=== PATIENT | male | born 1935 | race Caucasian/White ===

== ENCOUNTER 2021-01-30 14:03 | Inpatient (IN) ==
[2021-01-30] MEDS ORDERED: SODIUM CHLORIDE 0.9% 1000ML 1,000 ML IV SCH ×2 (15:00→22:07)
[2021-01-30 15:08] LABS: Basophils # (auto) 0.03 K/uL (0-0.2); Basophils % (auto) 0.2 %; Eosinophils # (auto) 0.04 K/uL (0-0.5); Eosinophils % (auto) 0.3 %; Hemoglobin 8.8 g/dL (14.0-18.0); Immature Granulocytes # (auto) 0.08 K/uL (0.00-0.02); Immature Granulocytes % (auto) 0.7 %; Lymphocytes # (auto) 1.37 K/uL (1.2-3.4); Lymphocytes % (auto) 11.2 %; Mean Corpuscular Hemoglobin 30.3 pg (25-34); Mean Corpuscular Hgb Conc 32.6 g/dL (32-36); Mean Corpuscular Volume 93.1 fL (80-100); Mean Platelet Volume 10.5 fL (7.4-10.4); Monocytes # (auto) 0.88 K/uL (0.11-0.59); Monocytes % (auto) 7.2 %; Neutrophils # (auto) 9.84 K/uL (1.4-6.5); Neutrophils % (auto) 80.4 %; Platelet Count 185 K/uL (130-400); RDW Coefficient of Variation 14.3 % (11.5-14.5); RDW Standard Deviation 48.7 fL (36.4-46.3); White Blood Count 12.24 K/uL (4.8-10.8)
[2021-01-30 15:16] LABS: Alanine Aminotransferase 11 U/L (12-78); Albumin Level 2.6 gm/dl (3.4-5.0); Aspartate Aminotransferase 32 U/L (15-37); BUN Creatinine Ratio 20.1 (10-20); Blood Urea Nitrogen 36 mg/dl (7-18); Carbon Dioxide 25 mmol/L (21-32); Chloride 108 mmol/L (98-107); Creatinine Clr Calc Pharmacy 38.1 ml/min; Est GFR (African American) 39.7 ml/min; Est GFR (Non-African American) 34.3 ml/min; Glucose 151 mg/dl (70-99); Lipase 59 U/L (73-393); Magnesium 2.1 mg/dl (1.8-2.4); Potassium 3.9 mmol/L (3.5-5.1); Sodium 137 mmol/L (136-145)
[2021-01-30 15:17] LABS: INR 3.1 (0.9-1.1); Prothrombin Time 28.8 Seconds (9.0-12.0)
--- NOTE | 2021-01-30 15:22 | XRay Report ---
XR chest 1V portable INDICATION: MN ^syncope . TECHNIQUE: Single frontal radiograph of the chest was obtained. Comparison: None available at the time of this dictation. FINDINGS: Pacemaker is noted. The cardiomediastinal silhouette is normal. Atelectasis is noted at the left lung base. No evidence of pleural effusion or pneumothorax. IMPRESSION: No acute chest disease. ACT 112: Negative or not required by law. Electronically signed by: Brent Becerra M.D. 01/30/2021 3:21 PM
[2021-01-30 15:33] LABS: Albumin Globulin Ratio 0.8 (0.9-2); Alkaline Phosphatase 75 U/L (45-117); Bilirubin,Total 0.3 mg/dl (0.2-1); Globulin 3.3 gm/dl (2.5-4.0); NT Pro B Type Natriuretic Pept 424 pg/ml (0-1800); Total Protein 5.9 gm/dl (6.4-8.2); Troponin I < 0.015 ng/ml (0-0.045)
--- NOTE | 2021-01-30 15:41 | Emergency Department Note ---
History of Present Illness General Chief complaint: Syncope Time Seen by Provider: 01/30/21 14:33 Source: EMS and RN notes reviewed Mode of arrival: EMS Limitations: other (No memory of the events) History of Present Illness Provider complaint: Syncope Maximum Pain Intensity: 6 Treatments prior to arrival: none This is an 85-year-old male brought in by EMS from a local rehab facility due to concern for syncopal event. Per report of EMS and notes sent with, patient had an episode where he stared, and seemed to get weak when they tried to sit him up or stand him up. Patient recently admitted to the inpatient rehab facility following an admission at [facility] where he was found to have a blood clot in his brain. Patient was started on blood thinners. There was no reported seizure-like activity. Patient could not recall the events or why he was transported. Patient denied any pain, headaches, nausea, vision changes, chest pain, or trouble breathing. Patient states he does have left knee pain which she states has been ongoing and chronic, and he was to have an evaluation by orthopedic surgery. Patient then had a second episode similar to the first according to the report and 911 was contacted for transport. No loss of bowel or bladder function. They denied any trauma. Paperwork accompanying patient shows patient had been on Lovenox to bridge him to Coumadin. Patient's discharge summary showing the original CT findings in hi s original presentation were also there. Patient's original presentation when they blood clot in his brain was found was that of syncope. Pt seen during a time of high acuity and national emergency pandemic while wearing PPE. Home Medications Medication Instructions Recorded Confirmed Type acetaminophen 325 mg tablet 650 mg PO Q4H PRN 01/30/21 01/30/21 History atorvastatin 40 mg tablet 80 mg PO PM 01/30/21 01/30/21 History bisacodyl 10 mg rectal suppository 10 mg MT DAILY PRN 01/30/21 01/30/21 History carbidopa 25 mg-levodopa 100 mg 1.5 tab PO TID 01/30/21 01/30/21 History tablet cyanocobalamin (vitamin B-12) 1,000 mcg PO DAILY 01/30/21 01/30/21 History 1,000 mcg tablet docusate sodium 100 mg capsule 100 mg PO BID 01/30/21 01/30/21 History enoxaparin 100 mg/mL subcutaneous 100 mg SUBCUT Q12H 01/30/21 01/30/21 History syringe glucosamine sulfate 500 mg tablet 500 mg PO BID 01/30/21 01/30/21 History (Glucosamine) metoprolol succinate 25 mg 25 mg PO DAILY 01/30/21 01/30/21 History tablet,extended release 24 hr polyethylene glycol 3350 17 17 g PO DAILY PRN 01/30/21 01/30/21 History gram/dose oral powder sennosides 8.6 mg tablet (Senna 8.6 mg PO .DAILY@LUNCH PRN 01/30/21 01/30/21 History Laxative) warfarin 5 mg tablet 5 mg PO UD 01/30/21 01/30/21 History Allergies Allergy/AdvReac Type Severity Reaction Status Date / Time cortisone Allergy Unknown Unverified 01/30/21 16:55 Past Med/Surg History Medical History CKD (chronic kidney disease), stage III HTN (hypertension) Pacemaker Parkinsonian features Sick sinus syndrome TIA (transient ischemic attack) Surgical History History of carpal tunnel surgery History of lumbar surgery Family History Daughter Heart disease FH - Bradycardia Social History Smoking Status: Never smoker Smoking End Date: Quit in s; Second Hand Exposure: No; Do You Dip or Chew Tobacco: No; Tobacco Cessation Education Requested by Patient: No Hx Alcohol Use: Yes (1-2 glasses wine a day) Alcohol type: wine Hx Substance Use: No Preferred Language: Belarusian Communication Ability: Effective 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 glasses and BL hearing aids at bedside Review of Systems A total of 10 systems reviewed and were otherwise negative All systems reviewed & are unremarkable except as noted in HPI & below Physical Exam Vital Signs Vital Signs - 24 hr 01/30/21 14:35 Temperature 36.7 C Temperature Source Oral Pulse Rate 76 Pulse Rhythm Regular Pulse Strength Normal Respiratory Rate 14 Respiratory Effort / Characteristics Non-Labored Spontaneous Respiratory Depth Normal Respiratory Pattern Regular Blood Pressure 134/74 Blood Pressure Mean 94 Blood Pressure Position Sitting Pulse Oximetry 98 Oxygen Delivery Method Room Air Sepsis Recent Fever Within 48 Hours No Sepsis New/Unexplained Change in Mental Status No Sepsis Action Taken by Nursing No Action Required GENERAL: alert, well appearing, well nourished, no distress, non-toxic EYE EXAM: normal conjunctiva, PERRL and EOM's grossly intact OROPHARYNX: no exudate, no erythema, lips, buccal mucosa, and tongue normal and mucous membranes are moist NECK: supple, no nuchal rigidity, no adenopathy, non-tender LUNGS: Clear to auscultation. Normal chest wall mechanics, no w/r/r HEART: no murmurs, S1 normal and S2 normal ABDOMEN: abdomen soft, non-tender, normo-active bowel sounds, no masses, no rebound or guarding. BACK: Back is symmetrical on inspection and there is no deformity, no midline tenderness, no CVA tenderness. SKIN: no rashes and no bruising UPPER EXTREMITIES: upper extremities are grossly normal. FROM, nml pulses b/l. LOWER EXTREMITIES: No pitting edema. Obvious joint effusion noted to the left knee with significant swelling compared to the contralateral side, mild discomfort with palpation and decreased range of motion secondary to pain, no overlying erythema, no increased warmth. Patient's left quadricep region also appears slightly enlarged compared to the contralateral side, no evidence of ecchymosis or trauma, no evidence distal to the knee of trauma, edema, or injury. FROM of the right lower extremity, nml pulses b/l. Sensation intact bilaterally. NEURO EXAM: Normal sensorium, cranial nerves II-XII grossly intact, normal speech, no gross weakness of arms, no gross weakness of legs. No facial droop, no obvious limb ataxia. Gross sensation intact. Course Administered Medications Atorvastatin Calcium (Atorvastatin 40 Mg Tab) 80 mg PO PM GUICHO Stop: 03/01/21 22:06 Last Admin: 01/31/21 20:34 Dose: Not Given Documented by: [id number] Admin: 01/30/21 22:52 Dose: 80 mg Documented by: [id number] Carbidopa/Levodopa (Carbidopa/Levodopa 25/100mg Tab) 1.5 tab PO TID GUICHO Stop: 03/01/21 22:06 Last Admin: 02/01/21 14:40 Dose: Not Given Documented by: [id number] Admin: 02/01/21 12:31 Dose: Not Given Documented by: [id number] Admin: 01/31/21 20:34 Dose: Not Given Documented by: [id number] Admin: 01/31/21 15:18 Dose: Not Given Documented by: [id number] Admin: 01/31/21 10:38 Dose: Not Given Documented by: [id number] Admin: 01/30/21 22:52 Dose: 1.5 tab Documented by: [id number] Cyanocobalamin (Cyanocobalamin 500 Mcg Tablet (Vitamin B-12)) 1,000 mcg PO DAILY GUIC[facility] Stop: 03/02/21 08:59 Last Admin: 02/01/21 12:30 Dose: Not Given Documented by: [id number] Admin: 01/31/21 10:38 Dose: Not Given Documented by: [id number] Hydromorphone HCl (Hydromorphone Inj 0.5 Mg/0.5 Ml Syr) 0.25 mg IV Q6H PRN PRN Reason: Pain Stop: 02/15/21 05:28 Last Admin: 02/01/21 12:25 Dose: 0.25 mg Documented by: [id number] Lorazepam (Ativan) 1 mg in 2 mls @ 0.5 mls/min IV Q10M PRN PRN Reason: seizures Stop: 03/01/21 22:40 Last Admin: 02/01/21 02:06 Dose: 0.5 mls/min Documented by: [id number] Admin: 01/31/21 01:37 Dose: 0.5 mls/min Documented by: [id number] Levetiracetam (Levetiracetam 500 Mg Tab) 500 mg PO BID GUICHO Stop: 03/02/21 08:59 Last Admin: 01/31/21 08:14 Dose: 500 mg Documented by: [id number] Lidocaine (Lidocaine 5% 1 Patch) 1 patch TD QAM [facility] Stop: 03/02/21 08:59 Last Admin: 02/01/21 12:30 Dose: Not Given Documented by: [id number] Admin: 01/31/21 08:15 Dose: 1 patch Documented by: [id number] Metoprolol Succinate (Metoprolol Succ 25mg Ext Rel Tab) 25 mg PO DAILY [facility] Stop: 03/02/21 08:59 Last Admin: 02/01/21 12:31 Dose: 25 mg Documented by: [id number] Admin: 01/31/21 10:39 Dose: Not Given Documented by: [id number] Miscellaneous (Remove Lidoderm Patch) 1 ea N/A DAILY@2100 [facility] Stop: 03/01/21 22:06 Last Admin: 01/31/21 20:35 Dose: Not Given Documented by: [id number] Admin: 01/30/21 22:13 Dose: 1 ea Documented by: [id number] Discontinued Medications Docusate Sodium (Docusate Sodium 100 Mg Cap) 100 mg PO BID [facility] Stop: 03/01/21 22:06 Last Admin: 01/30/21 22:52 Dose: Not Given Documented by: [id number] Sodium Chloride (Nss 1000ml) 1,000 mls @ 125 mls/hr IV .Q8H [facility] Stop: 03/01/21 14:59 Last Infusion: 01/30/21 22:10 Dose: 0 mls/hr Documented by: [id number] Admin: 01/30/21 15:41 Dose: 125 mls/hr Documented by: [id number] Sodium Chloride (Nss 1000ml) 1,000 mls @ 80 mls/hr IV .[id number] [facility] Stop: 01/31/21 10:36 Last Infusion: 01/31/21 12:02 Dose: 0 mls/hr Documented by: [id number] Infusion: 01/31/21 05:12 Dose: 80 mls/hr Documented by: [id number] Infusion: 01/31/21 00:25 Dose: 0 mls/hr Documented by: [id number] Admin: 01/30/21 22:22 Dose: 80 mls/hr Documented by: [id number] Thiamine HCl 100 mg/ Syringe 10 mls @ 2 mls/min IV ONE ONE Stop: 01/30/21 23:04 Last Admin: 01/30/21 23:14 Dose: 2 mls/min Documented by: [id number] Phytonadione 10 mg/ Sodium (Chloride) 51 mls @ 102 mls/hr IV ONE ONE Stop: 01/30/21 23:29 Last Infusion: 01/30/21 23:45 Dose: 0 mls/hr Documented by: [id number] Admin: 01/30/21 23:14 Dose: 102 mls/hr Documented by: [id number] Levetiracetam 1,000 mg/ Sodium (Chloride) 110 mls @ 440 mls/hr IV NOW STA Stop: 01/30/21 23:43 Last Infusion: 01/31/21 00:02 Dose: 0 mls/hr Documented by: [id number] Admin: 01/30/21 23:47 Dose: 440 mls/hr Documented by: [id number] Furosemide 40 mg/ Syringe 4 mls @ 4 mls/min IV ONE ONE Stop: 02/01/21 12:43 Last Admin: 02/01/21 13:00 Dose: 4 mls/min Documented by: [id number] Ioversol (Optiray 320 125ml) 119 ml IV ONCE ONE Stop: 01/30/21 16:11 Last Admin: 01/30/21 16:14 Dose: 119 ml Documented by: [id number] Medical Decision Making Differential Diagnosis Differential diagnosis includes etiologies such as vasovagal event, infection, hypoglycemia, electrolyte abnormalities, cardiac sources, intracerebral event, toxicologic, neurologic, as well as others were entertained. Medical Records Attestation: I reviewed the patient's medical records. Home Medications Current Medication List: was personally reviewed by me Laboratory Data Attestation: I reviewed the patient's lab results. Result diagrams: 02/01/21 08:06 02/01/21 08:06 Lab Results 01/30/21 01/30/21 01/30/21 Range/Units 14:33 14:33 14:33 WBC 12.24 H (4.8-10.8) K/uL RBC 2.90 L (4.7-6.1) M/uL Hgb 8.8 L (14.0-18.0) g/dL Hct 27.0 L (42-52) % MCV 93.1 (80-100) fL MCH 30.3 (25-34) pg MCHC 32.6 (32-36) g/dL RDW Std Deviation 48.7 H (36.4-46.3) fL RDW Coeff of Brittany 14.3 (11.5-14.5) % Plt Count 185 (130-400) K/uL MPV 10.5 H (7.4-10.4) fL Immature Gran % (Auto) 0.7 % Neut % (Auto) 80.4 % Lymph % (Auto) 11.2 % Woodruff % (Auto) 7.2 % Eos % (Auto) 0.3 % Baso % (Auto) 0.2 % Neut # (Auto) 9.84 H (1.4-6.5) K/uL Lymph # (Auto) 1.37 (1.2-3.4) K/uL Woodruff # (Auto) 0.88 H (0.11-0.59) K/uL Eos # (Auto) 0.04 (0-0.5) K/uL Baso # (Auto) 0.03 (0-0.2) K/uL Immature Gran # (Auto) 0.08 H (0.00-0.02) K/uL PT 28.8 H (9.0-12.0) Seconds INR 3.1 H (0.9-1.1) Sodium 137 (136-145) mmol/L Potassium 3.9 (3.5-5.1) mmol/L Chloride 108 H (98-107) mmol/L Carbon Dioxide 25 (21-32) mmol/L Anion Gap 4.0 (3-11) BUN 36 H (7-18) mg/dl Creatinine 1.77 H (0.6-1.4) mg/dl Est Cr Clr Drug Dosing 38.1 ml/min Est GFR ( Amer) 39.7 ml/min Est GFR (Non-Af Amer) 34.3 ml/min BUN/Creatinine Ratio 20.1 H (10-20) Glucose 151 H (70-99) mg/dl Calcium 8.0 L (8.5-10.1) mg/dl Magnesium 2.1 (1.8-2.4) mg/dl Total Bilirubin 0.3 (0.2-1) mg/dl AST 32 (15-37) U/L ALT 11 L (12-78) U/L Alkaline Phosphatase 75 (45-117) U/L Troponin I < 0.015 (0-0.045) ng/ml NT-Pro-B Natriuret Pep 424 (0-1800) pg/ml Total Protein 5.9 L (6.4-8.2) gm/dl Albumin 2.6 L (3.4-5.0) gm/dl Globulin 3.3 (2.5-4.0) gm/dl Albumin/Globulin Ratio 0.8 L (0.9-2) Lipase 59 L (73-393) U/L TSH 2.860 (0.300-4.500) uIu/ml COVID-19 Eval Order SARS-CoV-2 (PCR) (Negative) 01/30/21 01/30/21 Range/Units 19:16 19:16 WBC (4.8-10.8) K/uL RBC (4.7-6.1) M/uL Hgb (14.0-18.0) g/dL Hct (42-52) % MCV (80-100) fL MCH (25-34) pg MCHC (32-36) g/dL RDW Std Deviation (36.4-46.3) fL RDW Coeff of Brittany (11.5-14.5) % Plt Count (130-400) K/uL MPV (7.4-10.4) fL Immature Gran % (Auto) % Neut % (Auto) % Lymph % (Auto) % Woodruff % (Auto) % Eos % (Auto) % Baso % (Auto) % Neut # (Auto) (1.4-6.5) K/uL Lymph # (Auto) (1.2-3.4) K/uL Woodruff # (Auto) (0.11-0.59) K/uL Eos # (Auto) (0-0.5) K/uL Baso # (Auto) (0-0.2) K/uL Immature Gran # (Auto) (0.00-0.02) K/uL PT (9.0-12.0) Seconds INR (0.9-1.1) Sodium (136-145) mmol/L Potassium (3.5-5.1) mmol/L Chloride (98-107) mmol/L Carbon Dioxide (21-32) mmol/L Anion Gap (3-11) BUN (7-18) mg/dl Creatinine (0.6-1.4) mg/dl Est Cr Clr Drug Dosing ml/min Est GFR ( Amer) ml/min Est GFR (Non-Af Amer) ml/min BUN/Creatinine Ratio (10-20) Glucose (70-99) mg/dl Calcium (8.5-10.1) mg/dl Magnesium (1.8-2.4) mg/dl Total Bilirubin (0.2-1) mg/dl AST (15-37) U/L ALT (12-78) U/L Alkaline Phosphatase (45-117) U/L Troponin I (0-0.045) ng/ml NT-Pro-B Natriuret Pep (0-1800) pg/ml Total Protein (6.4-8.2) gm/dl Albumin (3.4-5.0) gm/dl Globulin (2.5-4.0) gm/dl Albumin/Globulin Ratio (0.9-2) Lipase (73-393) U/L TSH (0.300-4.500) uIu/ml COVID-19 Eval Order Covid19 at [facility] SARS-CoV-2 (PCR) NEGATIVE (Negative) Imaging Data Radiologist's Impression: Chest X-Ray 01/30/21 14:58 XR chest 1V portable INDICATION: MN ^syncope . TECHNIQUE: Single frontal radiograph of the chest was obtained. Comparison: None available at the time of this dictation. FINDINGS: Pacemaker is noted. The cardiomediastinal silhouette is normal. Atelectasis is noted at the left lung base. No evidence of pleural effusion or pneumothorax. IMPRESSION: No acute chest disease. ACT 112: Negative or not required by law. Electronically signed by: Brent Becerra M.D. 01/30/2021 3:21 PM ECG Data Attestation: I personally reviewed and interpreted this ECG as follows: Indication: + syncope Rate (beats per minute): 74 Rhythm: + normal sinus ECG Intervals/blocks: + Normal QRS and + Normal QT ECG [place]: + Normal ECG ST segments: + Nonspecific ST abnormalities MDM Narrative This is an 85-year-old male brought in from inpatient rehab due to concern for syncopal events. 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 Patient's initial presentation had been syncope. Significant records were sent with the patient which did take extensive time to review. Patient sent back for repeat neuro imaging due to recent events and recurrent syncope. I did discuss the imaging results with the reading ra diologist and in comparison to reads provided on prior paperwork it does seem that there is no longer a thrombus evident, no other new changes were seen. Patient found to have new anemia compared to prior labs on the paperwork in addition. Patient denies any black or bloody stools, hemoptysis, abdominal pain, or chest pain. I discussed all results with patient and family members who presented to bedside. Patient's INR is therapeutic. We will send patient for CT of the abdomen and pelvis to investigate both the intra-abdominal and retroperitoneal space for possible occult blood loss and perform a bedside rectal exam. Hospitalist did evaluate the patient during this interim when I came to repeat a rectal exam, this was deferred to them. As they were placing orders, CT did reveal blood likely within the quadriceps. Hospitalist had added on a CT of the patient's lower extremity in addition. This appears to be the likely source of the patient's new anemia as patient had a large intramuscular hematoma within the left proximal lower extremity. Patient remained hemodynamically stable while in the ER. No need for emergency blood transfusion at this time. An order was placed for continuous cardiac monitoring. The monitor shows a rate of _80_ with _normal sinus__ rhythm. Impression & Plan Syncope, Effusion of left knee, Anemia, CKD (chronic kidney disease), Knee pain, left Discharge Plan Visit Data Chief Complaint: Syncope ED Provider: Natasha Sears Discharge Problem: Syncope, Effusion of left knee, Anemia, CKD (chronic kidney disease), Knee pain, left Patient Disposition: Admitted As Inpatient Discharge Instructions Interventions: ED Discharge Assessment Last Done: 01/30/21 21:38 Discharge Problem: Syncope Qualifiers: Syncope type: unspecified Qualified Code(s): R55 - Syncope and collapse Anemia Qualifiers: Anemia type: unspecified type Qualified Code(s): D64.9 - Anemia, unspecified CKD (chronic kidney disease) Qualifiers: Chronic kidney disease stage: unspecified stage Qualified Code(s): N18.9 - Chronic kidney disease, unspecified Knee pain, left Qualifiers: Chronicity: chronic Qualified Code(s): M25.562 - Pain in left knee
[2021-01-30] MEDS ORDERED: OPTIRAY 320 125ml IV ONE (16:10)
--- NOTE | 2021-01-30 16:35 | CT Scan Report ---
CT head/brain wo con, CT angio neck with con, CT angio head w con CLINICAL HISTORY: 85 years-old Male with syncope, recent cva/basilar artery thrombus. Acute syncope with strokelike symptoms TECHNIQUE: Multiple axial CT images of the head were obtained without contrast. CTA had and neck was also obtained following the intravenous administration of 119 mL Optiray 320. All measurements were o btained according to NASCET criteria. 3-D coronal and sagittal MIPS were obtained and submitted for r eview. A dose lowering technique was utilized adhering to the principles of ALARA. CT DOSE: 1160.04 mGy.cm COMPARISON: Head CT 07/07/2018 FINDINGS: CT HEAD: No acute intracranial hemorrhage, midline shift, intracranial mass, hydrocephalus, territorial ischem ia or abnormal extra-axial collection. Age-related involutional changes with mild ex vacuo ventriculo megaly. White matter hypodensities suggestive of chronic microvascular ischemic disease. Cerebral vas cular calcifications. Chronic appearing lacunar infarcts of the basal ganglia. The calvarium is intact. Prior bilateral lens repair. The paranasal sinuses, mastoid air cells, and m iddle ear cavities are clear. CTA HEAD AND NECK: Atherosclerosis of the thoracic aorta. Patency of the innominate and imaged subclavian arteries. Barker nt common carotid arteries. Atherosclerotic plaque of the right greater than left carotid bulbs. Ther e is less than 50% stenosis of the proximal left ICA. There is 50% luminal narrowing of the proximal right ICA on image 207. Mild tortuosity of the distal cervical segments of the internal carotid arter ies. Calcified plaque of the cavernous and supraclinoid segments without high-grade stenosis. The mid dle and anterior cerebral arteries appear patent. Dominant left vertebral artery. Calcified plaque at the origin of the left vertebral artery causes at least mild stenosis. Developmentally diminutive ri ght vertebral artery. There is moderate stenosis of the proximal V4 segment of the right vertebral ar marquis on image 290 series 6 with approximately 50% stenosis also noted within the V4 segment on image 328. High-grade stenosis of the V4 segment on image 346 just proximal to the basilar anastomosis. Mul tifocal areas of high-grade stenosis of the right posterior cerebral artery are noted (please see idalia ge 125 and image 126 of series 5). Moderate narrowing of the left posterior cerebral artery on image 122. The cerebral venous sinuses are patent. No abnormal intracranial enhancement. No pneumothorax. Mild e mphysema. Unremarkable soft tissues. Degenerative changes of the cervical spine. Polypoid mucosal thi ckening of the maxillary sinuses. IMPRESSION: 1. No acute intracranial abnormality. 2. Atherosclerotic plaque of the right greater than left carotid bulbs. There is approximately 50% st enosis of the proximal cervical segment of the right ICA with less than 50% stenosis on the left. 3. 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 ACT 112: Negative or not required by law. The above report was generated using voice recognition software. It may contain grammatical, syntax o r spelling errors. Electronically signed by: Deuce Negrete M.D. 01/30/2021 4:34 PM
--- NOTE | 2021-01-30 18:23 | History & Physical Report ---
Date of Service January 30, 2021 Assessment & Plan (1) Syncope: Plan: Patient is 85-year-old male with PMH HTN, TIA, CKD III, parkinsonian features, h/o sick sinus syndrome s/p pacemaker presented to ER from [facility] for 2 syncopal episodes today when sitting up. Denies tonic-clonic features, loss control of bowel/bladder In ER patient afebrile, BP: 134/74, P: 76, R: 14, 98% on room air. H/H: .12/19, INR: 3.1. Negative troponin. CTA head and neck: Impression: No acute intracranial abnormality. Atherosclerotic plaque of the right greater than left carotid bulbs. There is approximately 50% stenosis of the proximal cervical segment of the right ICA with less than 50% stenosis on the left. Multifocal high-grade stenoses of the distal right vertebral and right posterior cerebral arteries. May be secondary to orthostatic hypotension, symptomatic anemia, dysautonomia, arrhythmia History echo 01/18/2021: EF: 55-59%, grade 1 diastolic dysfunction, aortic root mildly enlarged, mild aortic vegetation, mild mitral regurgitation Obtain orthostatic vitals Fall precautions Pacer interrogation Neurology consult CBC, BMP in AM (2) Stroke: Plan: History TIA. Recent History of basilar artery thrombosis Recent hospitalization at [facility] 01/18/2021-02/21/2021 for episode bilateral leg weakness and syncope. CTA head showed a R mid V2-distal V4 artery occlusion with additional subocclusive thrombus extending to the tip of the basilar artery. Initial treatment IV heparin then transition warfarin with a Lovenox bridge after interval imaging showed stability of the thrombus Today CTA head and neck: No acute intracranial abnormality. Atherosclerotic plaque of the right greater than left carotid bulbs. There is approximately 50% stenosis of the proximal cervical segment of the right ICA with less than 50% stenosis on the left. Multifocal high-grade stenoses of the distal right vertebral and right posterior cerebral arteries INR: 3.1 Monitor INR Continue atorvastatin, Coumadin for now (3) Anemia: Plan: H/H: .12/19. Baseline Hgb ~12. Was 11.2 on 01/29/2021 INR: 3.1 Denies melena, hematochezia, hematuria, epistaxis CT abdomen pending Hemoccult stool pending Suspect patient may have hemarthrosis left knee Monitor H&H, transfuse as needed (4) Knee effusion, left: Plan: Left knee edema since admission at [facility]. 01/21/2021 left knee x-ray shows large nonspecific joint effusion. Orthopedics had seen patient at [facility] and recommended conservative management Patient with continued left knee pain and increased edema. Now with more significant anemia DDx: Hemarthrosis Obtain CT left knee Ortho consult (5) Acute kidney injury superimposed on CKD: Plan: Cr: 1.7. Baseline creatinine 1.4 per outpatient records. Creatinine was 1.4 on 01/29/2021 Monitor renal functions, avoid nephrotoxic agents when possible Gentle IVF (6) Sick sinus syndrome: Plan: S/p pacemaker Pacer interrogation (7) Parkinsonian features: Plan[place] Continue carbidopa levodopa (8) HTN (hypertension): Plan: Stable Continue metoprolol succinate DVT Prophylaxis -On Coumadin Full Code as per discussion with pt Follows with Dr Newton for routine care Pt was seen and care coordinated with Dr Dailey. See addendum History of Present Illness Chief Complaint: Syncope Primary Care Provider: Ted Newton Patient is 85-year-old male with PMH HTN, TIA, CKD III, parkinsonian features, h/o sick sinus syndrome s/p pacemaker presented to ER from [facility] for syncopal episode. Patient with history hospitalization at [facility] 01/18/2021- 02/21/2021. He had episode of bilateral leg weakness and syncopal episode en route to ER. [facility] ER had CTA head which revealed a R mid V2-distal V4 artery occlusion with additional subocclusive thrombus extending to the tip of the basilar artery. Patient transferred to [facility]. No focal deficits reported on exam. He was initially started on a heparin drip for treatment of the thrombus, and after interval imaging showed stability of the thrombus, he was transitioned to warfarin with a Lovenox bridge and his prior Plavix was discontinued. He was discharged to [facility]. During that hospitalization patient also was found to have left knee effusion and there was concern for hemarthrosis. Orthopedic surgery commended conservative management with rest ice compression and elevation. Today at [facility] it is reported that patient set up this morning and had a staring off episode and had slow and sluggish speech. Is reported symptoms lasted several minutes and resolved. Patient set up to try to participate in PT today and had episode of staring off and then eyes rolled back and head and patient started to fall backwards into his bed. Staff there denies any tonic-clonic movements, diaphoresis. This occurred twice today. Patient does not recall any of these events. Patient's and daughter report patient has history of orthostatic hypotension past. Patient reports left knee pain which is extended up left thigh with edema. Patient's family reports edema looks worse than when he left [facility]. Patient denies any known fall. He reports he has very limited range of motion of left leg and knee secondary to pain. Denies paresthesias. Denies fever/chills, diaphoresis, N/V/D, CRISOSTOMO, dizziness, vision changes, neck pain, CP, SOB, orthopnea, palpitations, cough, sore throat, choking, otalgia, rhinorrhea, abdominal pain, right lower or bilateral upper extremity weakness, other extremity edema, rashes, urinary symptoms. In ER patient afebrile, BP: 134/74, P: 76, R: 14, 98% on room air. H/H: 8.8/27, INR: 3.1. Negative troponin. CTA head and neck: No acute intracranial abnormality. Atherosclerotic plaque of the right greater than left carotid bulbs. There is approximately 50% stenosis of the proximal cervical segment of the right ICA with less than 50% stenosis on the left. Multifocal high-grade stenoses of the distal right vertebral and right posterior cerebral arteries. Allergies Allergy/AdvReac Type Severity Reaction Status Date / Time cortisone Allergy Unknown Unverified 01/30/21 16:55 HAY FEVER Allergy Unknown Uncoded 01/30/21 16:56 Home Medications Medication Instructions Recorded Confirmed Type acetaminophen 325 mg tablet 650 mg PO Q4H PRN 01/30/21 01/30/21 History atorvastatin 40 mg tablet 80 mg PO PM 01/30/21 01/30/21 History bisacodyl 10 mg rectal suppository 10 mg NE DAILY PRN 01/30/21 01/30/21 History carbidopa 25 mg-levodopa 100 mg 1.5 tab PO TID 01/30/21 01/30/21 History tablet cyanocobalamin (vitamin B-12) 1,000 mcg PO DAILY 01/30/21 01/30/21 History 1,000 mcg tablet docusate sodium 100 mg capsule 100 mg PO BID 01/30/21 01/30/21 History enoxaparin 100 mg/mL subcutaneous 100 mg SUBCUT Q12H 01/30/21 01/30/21 History syringe glucosamine sulfate 500 mg tablet 500 mg PO BID 01/30/21 01/30/21 History (Glucosamine) metoprolol succinate 25 mg 25 mg PO DAILY 01/30/21 01/30/21 History tablet,extended release 24 hr polyethylene glycol 3350 17 17 g PO DAILY PRN 01/30/21 01/30/21 History gram/dose oral powder sennosides 8.6 mg tablet (Senna 8.6 mg PO .DAILY@LUNCH PRN 01/30/21 01/30/21 History Laxative) warfarin 5 mg tablet 5 mg PO UD 01/30/21 01/30/21 History Past Med/Surg History Medical History (Updated 01/30/21 @ 19:53 by Kemi Mcmahon PA-C) CKD (chronic kidney disease), stage III HTN (hypertension) Pacemaker Parkinsonian features Sick sinus syndrome TIA (transient ischemic attack) Surgical History (Updated 01/30/21 @ 19:40 by Kemi Mcmahon PA-C) History of carpal tunnel surgery History of lumbar surgery Family History (Updated 01/30/21 @ 19:41 by Kemi Mcmahon PA-C) Daughter Heart disease FH - Bradycardia Social History (Updated 01/30/21 @ 19:41 by Kemi Mcmahon PA-C) Smoking Status: Former smoker Smoking End Date: Quit in ; Hx Alcohol Use: Yes (1-2 glasses wine a day) Hx Substance Use: No Feels Safe at Home: Yes Review of Systems Review of Systems: All systems reviewed & are unremarkable except as noted in HPI & below Physical Exam Physical Exam: General: no distress, WDWN Head: normocephalic, atraumatic Eyes: hard of hearing, PERRL, EOM's intact, conjunctiva non-injected, anicteric ENT: normal inspection external ears, nose, mucous membranes moist Neck: supple, trachea midline Lungs: clear, no respiratory distress, no wheezing/rhonchi/rales CV: RRR, no murmur, no pitting edema Abd: normal BS, soft, non-tender Ext: LLE: +edema extending thigh, knee, lower leg without skin discoloration pt unable to actively ROM leg and knee, able to dorsiflex and plantar flex foot. Unable to test passive ROM leg and knee secondary to discomfort. Distal pulses palpable, sensation to light touch intact. Remaining extremities with no cyanosis, no erythema, ROM intact Neuro: A&O x 3, Visual koch intact. PERRL, Facial sensation is intact and symmetric, The face is strong and symmetric, hard of hearing, Soft palate elevates symmetrically, no dysarthria, Shoulder shrug intact, Tongue is midline, normal movement, no fasciculations Skin: warm, dry Results & Data Results & Data ([facility]) Vital Signs (Past 12 Hours) Vital Signs Temp Pulse Resp BP Pulse Ox 01/30/21 16:30 69 15 179/94 H 96 01/30/21 16:00 73 17 99 01/30/21 15:30 73 18 126/85 78 L 01/30/21 15:00 70 28 H 93 01/30/21 14:35 36.7 C 76 14 134/74 98 01/30/21 14:30 74 21 99 01/30/21 14:12 77 17 96 Laboratory Results Short CBC 01/30/21 Range/Units 14:33 WBC 12.24 H (4.8-10.8) K/uL Hgb 8.8 L (14.0-18.0) g/dL Hct 27.0 L (42-52) % Plt Count 185 (130-400) K/uL BMP 01/30/21 14:33 Sodium 137 Potassium 3.9 Chloride 108 H Carbon Dioxide 25 BUN 36 H Creatinine 1.77 H Glucose 151 H Calcium 8.0 L Cardiac Enzymes 01/30/21 Range/Units 14:33 Troponin I < 0.015 (0-0.045) ng/ml Liver Function 01/30/21 Range/Units 14:33 Total Bilirubin 0.3 (0.2-1) mg/dl AST 32 (15-37) U/L ALT 11 L (12-78) U/L Alkaline Phosphatase 75 (45-117) U/L Albumin 2.6 L (3.4-5.0) gm/dl Diagnostic Findings Head CT 10/08/21 14:57 CT head/brain wo con, CT angio neck with con, CT angio head w con CLINICAL HISTORY: 85 years-old Male with syncope, recent cva/basilar artery thrombus. Acute syncope with strokelike symptoms TECHNIQUE: Multiple axial CT images of the head were obtained without contrast. CTA had and neck was also obtained following the intravenous administration of 119 mL Optiray 320. All measurements were obtained according to NASCET criteria. 3-D coronal and sagittal MIPS were obtained and submitted for review. A dose lowering technique was utilized adhering to the principles of ALARA. CT DOSE: 1160.04 mGy.cm COMPARISON: Head CT 07/07/2018 FINDINGS: CT HEAD: No acute intracranial hemorrhage, midline shift, intracranial mass, hydrocephalus, territorial ischemia or abnormal extra-axial collection. Age-related involutional changes with mild ex vacuo ventriculomegaly. White matter hypodensities suggestive of chronic microvascular ischemic disease. Cerebral vascular calcifications. Chronic appearing lacunar infarcts of the basal ganglia. The calvarium is intact. Prior bilateral lens repair. The paranasal sinuses, mastoid air cells, and middle ear cavities are clear. CTA HEAD AND NECK: Atherosclerosis of the thoracic aorta. Patency of the innominate and imaged subclavian arteries. Patent common carotid arteries. Atherosclerotic plaque of the right greater than left carotid bulbs. There is less than 50% stenosis of the proximal left ICA. There is 50% luminal narrowing of the proximal right ICA on image 207. Mild tortuosity of the distal cervical segments of the internal carotid arteries. Calcified plaque of the cavernous and supraclinoid segments without high-grade stenosis. The middle and anterior cerebral arteries appear patent. Dominant left vertebral artery. Calcified plaque at the origin of the left vertebral artery causes at least mild stenosis. Developmentally diminutive right vertebral artery. There is moderate stenosis of the proximal V4 segment of the right vertebral artery on image 290 series 6 with approximately 50% stenosis also noted within the V4 segment on image 328. High-grade stenosis of the V4 segment on image 346 just proximal to the basilar anastomosis. Multifocal areas of high-grade stenosis of the right posterior cerebral artery are noted (please see image 125 and image 126 of series 5). Moderate narrowing of the left posterior cerebral artery on image 122. The cerebral venous sinuses are patent. No abnormal intracranial enhancement. No pneumothorax. Mild emphysema. Unremarkable soft tissues. Degenerative changes of the cervical spine. Polypoid mucosal thickening of the maxillary sinuses. IMPRESSION: 1. No acute intracranial abnormality. 2. Atherosclerotic plaque of the right greater than left carotid bulbs. There is approximately 50% stenosis of the proximal cervical segment of the right ICA with less than 50% stenosis on the left. 3. Multifocal high-grade stenoses of the distal right vertebral and right posterior cerebral arteries. ACT 112: Negative or not required by law. The above report was generated using voice recognition software. It may contain grammatical, syntax or spelling errors. Electronically signed by: Deuce Negrete M.D. 01/30/2021 4:34 PM Head CTA 01/30/21 14:57 CT head/brain wo con, CT angio neck with con, CT angio head w con CLINICAL HISTORY: 85 years-old Male with syncope, recent cva/basilar artery thrombus. Acute syncope with strokelike symptoms TECHNIQUE: Multiple axial CT images of the head were obtained without contrast. CTA had and neck was also obtained following the intravenous administration of 119 mL Optiray 320. All measurements were obtained according to NASCET criteria. 3-D coronal and sagittal MIPS were obtained and submitted for review. A dose lowering technique was utilized adhering to the principles of ALARA. CT DOSE: 1160.04 mGy.cm COMPARISON: Head CT 07/07/2018 FINDINGS: CT HEAD: No acute intracranial hemorrhage, midline shift, intracranial mass, hydrocephalus, territorial ischemia or abnormal extra-axial collection. Age- related involutional changes with mild ex vacuo ventriculomegaly. White matter hypodensities suggestive of chronic microvascular ischemic disease. Cerebral vascular calcifications. Chronic appearing lacunar infarcts of the basal ganglia. The calvarium is intact. Prior bilateral lens repair. The paranasal sinuses, mastoid air cells, and middle ear cavities are clear. CTA HEAD AND NECK: Atherosclerosis of the thoracic aorta. Patency of the innominate and imaged subclavian arteries. Patent common carotid arteries. Atherosclerotic plaque of the right greater than left carotid bulbs. There is less than 50% stenosis of the proximal left ICA. There is 50% luminal narrowing of the proximal right ICA on image 207. Mild tortuosity of the distal cervical segments of the internal carotid arteries. Calcified plaque of the cavernous and supraclinoid segments without high-grade stenosis. The middle and anterior cerebral arteries appear patent. Dominant left vertebral artery. Calcified plaque at the origin of the left vertebral artery causes at least mild stenosis. Developmentally diminutive right vertebral artery. There is moderate stenosis of the proximal V4 segment of the right vertebral artery on image 290 series 6 with approximately 50% stenosis also noted within the V4 segment on image 328. High-grade stenosis of the V4 segment on image 346 just proximal to the basilar anastomosis. Multifocal areas of high-grade stenosis of the right posterior cerebral artery are noted (please see image 125 and image 126 of series 5). Moderate narrowing of the left posterior cerebral artery on image 122. The cerebral venous sinuses are patent. No abnormal intracranial enhancement. No pneumothorax. Mild emphysema. Unremarkable soft tissues. Degenerative changes of the cervical spine. Polypoid mucosal thickening of the maxillary sinuses. IMPRESSION: 1. No acute intracranial abnormality. 2. Atherosclerotic plaque of the right greater than left carotid bulbs. There is approximately 50% stenosis of the proximal cervical segment of the right ICA with less than 50% stenosis on the left. 3. Multifocal high-grade stenoses of the distal right vertebral and right posterior cerebral arteries. ACT 112: Negative or not required by law. The above report was generated using voice recognition software. It may contain grammatical, syntax or spelling errors. Electronically signed by: Deuce Negrete M.D. 01/30/2021 4:34 PM Neck CTA 01/30/21 14:57 CT head/brain wo con, CT angio neck with con, CT angio head w con CLINICAL HISTORY: 85 years-old Male with syncope, recent cva/basilar artery thrombus. Acute syncope with strokelike symptoms TECHNIQUE: Multiple axial CT images of the head were obtained without contrast. CTA had and neck was also obtained following the intravenous administration of 119 mL Optiray 320. All measurements were obtained according to NASCET criteria. 3-D coronal and sagittal MIPS were obtained and submitted for review. A dose lowering technique was utilized adhering to the principles of ALARA. CT DOSE: 1160.04 mGy.cm COMPARISON: Head CT 07/07/2018 FINDINGS: CT HEAD: No acute intracranial hemorrhage, midline shift, intracranial mass, hydrocephalus, territorial ischemia or abnormal extra-axial collection. Age- related involutional changes with mild ex vacuo ventriculomegaly. White matter hypodensities suggestive of chronic microvascular ischemic disease. Cerebral vascular calcifications. Chronic appearing lacunar infarcts of the basal ganglia. The calvarium is intact. Prior bilateral lens repair. The paranasal sinuses, mastoid air cells, and middle ear cavities are clear. CTA HEAD AND NECK: Atherosclerosis of the thoracic aorta. Patency of the innominate and imaged subclavian arteries. Patent common carotid arteries. Atherosclerotic plaque of the right greater than left carotid bulbs. There is less than 50% stenosis of the proximal left ICA. There is 50% luminal narrowing of the proximal right ICA on image 207. Mild tortuosity of the distal cervical segments of the internal carotid arteries. Calcified plaque of the cavernous and supraclinoid segments without high-grade stenosis. The middle and anterior cerebral arteries appear patent. Dominant left vertebral artery. Calcified plaque at the origin of the left vertebral artery causes at least mild stenosis. Developmentally diminutive right vertebral artery. There is moderate stenosis of the proximal V4 segment of the right vertebral artery on image 290 series 6 with approximately 50% stenosis also noted within the V4 segment on image 328. High-grade stenosis of the V4 segment on image 346 just proximal to the basilar anastomosis. Multifocal areas of high-grade stenosis of the right posterior cerebral artery are noted (please see image 125 and image 126 of series 5). Moderate narrowing of the left post erior cerebral artery on image 122. The cerebral venous sinuses are patent. No abnormal intracranial enhancement. No pneumothorax. Mild emphysema. Unremarkable soft tissues. Degenerative changes of the cervical spine. Polypoid mucosal thickening of the maxillary sinuses. IMPRESSION: 1. No acute intracranial abnormality. 2. Atherosclerotic plaque of the right greater than left carotid bulbs. There is approximately 50% stenosis of the proximal cervical segment of the right ICA with less than 50% stenosis on the left. 3. Multifocal high-grade stenoses of the distal right vertebral and right posterior cerebral arteries. ACT 112: Negative or not required by law. The above report was generated using voice recognition software. It may contain grammatical, syntax or spelling errors. Electronically signed by: Deuce Negrete M.D. 01/30/2021 4:34 PM Chest X-Ray 01/30/21 14:58 XR chest 1V portable INDICATION: MN ^syncope . TECHNIQUE: Single frontal radiograph of the chest was obtained. Comparison: None available at the time of this dictation. FINDINGS: Pacemaker is noted. The cardiomediastinal silhouette is normal. Atelectasis is noted at the left lung base. No evidence of pleural effusion or pneumothorax. IMPRESSION: No acute chest disease. ACT 112: Negative or not required by law. Electronically signed by: Brent Becerra M.D. 01/30/2021 3:21 PM Supervising Physician Co-Signing Physician Notes Attending addendum Patient is 85-year-old male with PMH HTN, TIA, CKD III, parkinsonian features, h/o sick sinus syndrome s/p pacemaker presented to ER from [facility] for 2 syncopal episodes today when sitting up. Denies tonic-clonic features, loss control of bowel/bladde Complains pain in the left leg with any movement with swelling of the left knee joint Denies any neurological symptoms On examination Lying in bed comfortably Hemodynamically stable Chestclear to auscultate bilaterally HeartS1, S2 no murmur Abdomenbenign Extremitiesswelling of the right lower extremity specially thigh and the right knee, evidence of fluid in the right knee joint CNSalert, awake and oriented x3 Admission labs, EKG and imaging studies reviewed Awaiting reports of CT of the abdomen and CT of the lower extremity Has acute left lower extremity swelling and pain with movement To rule out acute hemorrhage/hemarthrosis Has been on Coumadin Agree with assessment and plan as outlined above by Kemi Dailey
[2021-01-30] MEDS ORDERED: SODIUM CHLORIDE 0.9% 250 ML IV PRN ×2 (19:23→23:57)
--- NOTE | 2021-01-30 20:33 | CT Scan Report ---
CT OF THE ABDOMEN AND PELVIS WITHOUT CONTRAST CLINICAL HISTORY: new anemia, syncope COMPARISON STUDY: No previous studies for comparison. TECHNIQUE: Axial images of the abdomen and pelvis were obtained without IV contrast. Images were revi ewed in the axial, sagittal, and coronal planes. Automated exposure control was utilized for the sona dy. A dose lowering technique was utilized adhering to the principles of ALARA. FINDINGS: Lung bases are unremarkable. Pacer leads are partially imaged. There is extensive coronary artery calcification. Cardiomegaly is noted. Evaluation of the abdomen and pelvis is suboptimal on this unenhanced exam. In addition, there is str eak artifact in the abdomen due to the patient's arms. No pneumatosis, free air or portal venous gas is present. Liver is somewhat small. No hepatic lesions are identified on this unenhanced exam. Unenh anced images of the spleen, adrenal glands and pancreas are unremarkable. There is contrast within th e kidneys, collecting systems, ureters and bladder from recent contrast-enhanced CT. There is an appa rent 1.9 cm hypodense lesion within left renal sinus. This is suboptimally assessed on this exam alth ough may reflect a parapelvic cyst. There is no evidence for a bowel obstruction. A large acute intramuscular hematoma within the left quadriceps, predominantly within the rectus femo ris, is partially imaged on this exam. This measures 10.2 x 8 cm in the AP by transverse dimensions r espectively. Hemorrhage extends into the left iliopsoas and iliacus muscles with a small amount of ad jacent retroperitoneal hemorrhage. No acute lumbar spine or pelvic fracture is identified. There is n o lymphadenopathy. No ascites is present within the abdomen or pelvis. IMPRESSION: Large acute intramuscular hematoma within the left quadriceps, predominantly within the rectus femoris, partially imaged on this exam. A CT of the left thigh/femur could be obtained. Intram uscular hemorrhage extends into the left iliopsoas and iliacus muscles with a small amount of adjacen t retroperitoneal hemorrhage. ACT 112: Negative or not required by law. Electronically signed by: Weston Robins M.D. 01/30/2021 8:31 PM
--- NOTE | 2021-01-30 20:43 | CT Scan Report ---
CT knee LT wo con CLINICAL HISTORY: Left knee edema. COMPARISON STUDY: No previous studies for comparison. TECHNIQUE: Axial images of the left knee were obtained without IV contrast. Sagittal and coronal fatou nstructions were viewed. Automated exposure control was utilized for the study. A dose lowering tech nique was utilized adhering to the principles of ALARA. FINDINGS: No acute fracture is identified. Note is made of marked medial compartment joint space narr owing of the left knee with osteophytosis. There is also moderate joint space narrowing and osteophyt osis within the patellofemoral compartment. Moderate osteophytosis of the lateral compartment is pres ent. There is a small complex popliteal cyst. No suspicious osseous lesion is noted. Subcutaneous flu id of the left knee is noted. There is a possible small left knee joint effusion. There is possible s mall amount of hemorrhage within visualized portions of the distal left quadriceps. IMPRESSION: 1. No acute fracture. 2. Severe left knee osteoarthritis. 3. Subcutaneous edema of the left knee. 4. Possible intramuscular hemorrhage within the distal left quadriceps. This could be assessed with a CT of the left femur/thigh. ACT 112: Negative or not required by law. Electronically signed by: Weston Robins M.D. 01/30/2021 8:42 PM
[2021-01-30 21:10] LABS: Appearance Urine Clear (Clear); Bilirubin Urine Negative (Negative); Blood Urine Negative (Negative); Color Urine Yellow; Glucose Urine UA Negative (Negative); Ketones Urine Trace (Negative); Leukocyte Esterase Urine Negative (Negative); Nitrite Urine Negative (Negative); Protein Urine Negative (Negative); Specific Gravity Urine > 1.045 (1.000-1.030); Urobilinogen Urine Negative (Negative)
[2021-01-30] MEDS ORDERED: SENNA 8.6 MG TAB PO PRN (22:07)
[2021-01-30] MEDS ORDERED: POLYETHYLENE (MIRALAX) 17 GM PACK PO PRN (22:07)
[2021-01-30] MEDS ORDERED: DOCUSATE SODIUM 100 MG CAP PO SCH (22:07)
[2021-01-30] MEDS ORDERED: ACETAMINOPHEN 325 MG TAB PO PRN (22:07)
[2021-01-30] MEDS ORDERED: bisacodyL 10 MG SUPP PR PRN (22:07)
[2021-01-30] MEDS ORDERED: ONDANSETRON INJ 2 MG/ML 2 ML VIAL IV PRN (22:07)
--- NOTE | 2021-01-30 22:42 | Communication Note ---
Date of Service: January 30, 2021 9:45 PM Patient witnessed to have 3 seizure episodes by staff (rigidity followed by unresponsiveness). Patient currently answering questions appropriately as per RN. CT results also noted Abdomen pelvis : Large acute intramuscular hematoma within the left quadriceps, predominantly within the rectus femoris, partially imaged on this exam. A CT of the left thigh/femur could be obtained. Intramuscular hemorrhage extends into the left iliopsoas and iliacus muscles with a small amount of adjacent retroperitoneal hemorrhage. INR 3.1 hemoglobin down to 7.6 from 8.8 AP New onset seizures hx CVA Progressive anemia secondary to retroperitoneal hemorrhage, left thigh hematoma secondary to Coumadin coagulopathy Ativan as needed Seizure precautions Initiate Keppra for seizure prophylaxis EEG in a.m. Amend Neurology consultation recent to new onset seizures Stop Coumadin IV vitamin K 1 dose now Transfuse PRBC to maintain hemoglobin greater than 8 (hx CVA) Patient updated of developments over the phone. Telephone consent obtained for blood transfusion given patient erratic mentation. Will relay to AM provider.
[2021-01-30] MEDS: ATORVASTATIN 40 MG TAB PO SCH (22:52)
[2021-01-30] MEDS: CARBIDOPA/LEVODOPA 25/100MG TAB PO SCH (22:52)
[2021-01-30] MEDS ORDERED: PHYTONADIONE 10 MG in SODIUM CHLORIDE 0.9% 50 ML IV ONE (23:00)
[2021-01-30] MEDS ORDERED: THIAMINE HCL 100 MG in SYRINGE 9 ML IV ONE (23:00)
[2021-01-30 23:26] LABS: Hematocrit (blood only) 23.1 % (42-52); Hemoglobin 7.6 g/dL (14.0-18.0)
[2021-01-30] MEDS ORDERED: levETIRAcetam 1,000 MG in 0.9 % SODIUM CHLORIDE 100 ML IV STA (23:29)
--- NOTE | 2021-01-31 00:54 | CT Scan Report ---
CT SCAN OF THE BRAIN WITHOUT IV CONTRAST CLINICAL HISTORY: Change in mental status COMPARISON STUDY: CT of the brain dated 01/30/2021. TECHNIQUE: Unenhanced axial CT scan of the brain is performed from the vertex to the skull base. A do se lowering technique was utilized adhering to the principles of ALARA. The examination is degraded b y motion artifact. CT DOSE: 1514.33 mGy.cm FINDINGS: Brain parenchyma: There are age-related involutional changes noting moderate subcortical and periven tricular microangiopathic change. There is no hemorrhage, mass effect, or evidence of acute territori al ischemia by CT criteria. Dillard-white matter differentiation is preserved. No extra-axial fluid rodney ection is seen. Ventricles, sulci, cisterns: Prominent secondary to involutional change. Intracranial vasculature: There is atherosclerotic calcification of the cavernous carotid and vertebr al arteries. Calvarium: Unremarkable. Sinuses and mastoids: There is mild mucosal thickening within the maxillary antra. The remaining para nasal sinuses are clear. The mastoid air cells are well pneumatized. Orbits: The bony orbits are grossly intact. There are bilateral ocular lens implants. IMPRESSION: There is no hemorrhage, mass effect, or evidence of acute territorial ischemia by CT gwyn roman. ACT 112: Negative or not required by law. Electronically signed by: Marcello Lozada M.D. 01/31/2021 12:53 AM
--- NOTE | 2021-01-31 01:03 | CT Scan Report ---
CT SCAN OF THE LEFT FEMUR WITHOUT IV CONTRAST CLINICAL HISTORY: Left thigh hematoma. COMPARISON STUDY: CT scan of the left knee dated 01/30/2021. TECHNIQUE: CT scan of the left femur is performed from the bony pelvis to the proximal tibia and fib anitra. Images are reviewed in the axial, sagittal, and coronal planes. IV contrast was not administered for this examination. A dose lowering technique was utilized adhering to the principles of ALARA. T he examination is degraded by motion artifact. FINDINGS: The skeletal structures are osteopenic. There is no evidence of left femoral fracture. The visualized left hemipelvis appears intact. The hip and knee joints are grossly maintained noting dege nerative change. There is generalized atrophy of the regional musculature. There is a large intramusc ular hemorrhage throughout the quadriceps musculature. This extends at least 23 cm in craniocaudal le ngth, and is centered in the vastus lateralis and the vastus intermedius. There is surrounding hemorr maribell within the subcutaneous soft tissues as well as overlying edema. There is atherosclerotic calcif ication of the left femoral artery. Excreted IV contrast is noted in the partially imaged bladder. Th ere is no left pelvic sidewall left inguinal adenopathy. No soft tissue gas is seen. IMPRESSION: 1. No acute bony abnormality is seen involving the left femur. 2. Large intramuscular hematoma within the left quadriceps musculature as above. ACT 112: Negative or not required by law. Electronically signed by: Marcello Lozada M.D. 01/31/2021 1:01 AM
[2021-01-31] MEDS: LORazepam 1 MG/2 ML VIAL IV PRN (01:37)
--- NOTE | 2021-01-31 07:06 | Electrocardiogram Report ---
Test Reason : Blood Pressure : / mmHG Vent. Rate : 074 BPM Atrial Rate : 074 BPM P-R Int : 160 ms QRS Dur : 106 ms QT Int : 426 ms P-R-T Axes : -04 010 032 degrees QTc Int : 472 ms Normal sinus rhythm with sinus arrhythmia Nonspecific ST abnormality Abnormal ECG No previous ECGs available Confirmed by Pedro Ashraf ([id number]) on 01/31/2021 7:05:38 AM Referred By: REFERRED SELF Confirmed By:Simón Ashraf
[2021-01-31] MEDS: CARBIDOPA/LEVODOPA 25/100MG TAB PO SCH ×4 (08:13→20:34)
[2021-01-31] MEDS: METOPROLOL SUCC 25MG EXT REL TAB PO SCH ×2 (08:14→10:39)
[2021-01-31] MEDS: CYANOCOBALAMIN 500 MCG TABLET (VITAMIN B-12) PO SCH ×2 (08:14→10:38)
[2021-01-31] MEDS: LIDOCAINE 5% 1 PATCH TD SCH (08:15)
--- NOTE | 2021-01-31 08:32 | Orthopedic Consultation ---
Date of Service January 31, 2021 Assessment & Plan (1) Hematoma of left thigh: I think the biggest issue with his leg is the large left thigh hematoma. The hematoma likely occurred from taking Lovenox 100 mg subcu twice a day along with the Coumadin therapy. His current INR is 3.1 and the Lovenox has been discontinued upon admission. The hematoma is nonsurgical. The body will resorb it on its own. We should continue to make sure the INR levels are within therapeutic range. He can be weightbearing as tolerated. He also has some arthritis of the left knee. I would think more of his pain is coming from the hematoma around the leg but he might be having some pain from the arthritis as well. I would normally offer a cortisone injection but with an INR 3.1 I do not want to initiate any hemarthrosis. I do not see enough of a knee joint effusion to warrant any aspiration. I think we will treat him conservatively with observation and pain control for now given his body time to resorb the hematoma of his thigh. History of Present Illness Reason for Consultation: Left thigh hematoma. Requesting Physician: . Attending Physician: Matthew Dailey MD Josh is a pleasant 85-year-old male with a history of Parkinson's disease and stroke. He was recently at [facility]. He was started on Coumadin with a Lovenox bridge for a recent stroke. He was seen by orthopedics at [facility] for left knee swelling and conservative management was recommended. He was then discharged [facility]. Yesterday at [facility] he stood up and had several syncopal episodes. He was brought to [facility] and admitted to the hospitalist service. He continues to have a lot of swelling of his left leg. He has been taking Lovenox 100 mg twice a day while bridging on Coumadin. His last dose Lovenox dose was yesterday. His INR is 3.1. He is demented and a very poor historian. Orthopedics was consulted to evaluate and treat his left knee. Apparently he is having some pain with the swelling of his leg and some pain in the knee. A CT scan was done of the left femur in the left knee yesterday. It showed advanced osteoarthritis of the left knee and a very large intramuscular hematoma of the left thigh.. Allergies Allergy/AdvReac Type Severity Reaction Status Date / Time cortisone Allergy Unknown Unverified 01/30/21 16:55 Home Medications Medication Instructions Recorded Confirmed Type acetaminophen 325 mg tablet 650 mg PO Q4H PRN 01/30/21 01/30/21 History atorvastatin 40 mg tablet 80 mg PO PM 01/30/21 01/30/21 History bisacodyl 10 mg rectal suppository 10 mg [place] DAILY PRN 01/30/21 01/30/21 History carbidopa 25 mg-levodopa 100 mg 1.5 tab PO TID 01/30/21 01/30/21 History tablet cyanocobalamin (vitamin B-12) 1,000 mcg PO DAILY 01/30/21 01/30/21 History 1,000 mcg tablet docusate sodium 100 mg capsule 100 mg PO BID 01/30/21 01/30/21 History enoxaparin 100 mg/mL subcutaneous 100 mg SUBCUT Q12H 01/30/21 01/30/21 History syringe glucosamine sulfate 500 mg tablet 500 mg PO BID 01/30/21 01/30/21 History (Glucosamine) metoprolol succinate 25 mg 25 mg PO DAILY 01/30/21 01/30/21 History tablet,extended release 24 hr polyethylene glycol 3350 17 17 g PO DAILY PRN 01/30/21 01/30/21 History gram/dose oral powder sennosides 8.6 mg tablet (Senna 8.6 mg PO .DAILY@LUNCH PRN 01/30/21 01/30/21 History Laxative) warfarin 5 mg tablet 5 mg PO UD 01/30/21 01/30/21 History Past Med/Surg History Medical History CKD (chronic kidney disease), stage III HTN (hypertension) Pacemaker Parkinsonian features Sick sinus syndrome TIA (transient ischemic attack) Surgical History History of carpal tunnel surgery History of lumbar surgery Family History Daughter Heart disease FH - Bradycardia Social History Smoking Status: Never smoker Smoking End Date: Quit in s; Second Hand Exposure: No; Do You Dip or Chew Tobacco: No; Tobacco Cessation Education Requested by Patient: No Hx Alcohol Use: Yes (1-2 glasses wine a day) Alcohol type: wine Hx Substance Use: No Preferred Language: Bahamian Communication Ability: Effective Operator Specialist Communications Required: No Beliefs That Will Affect Care: None Current Living Situation: Spouse Current Living Situation Comment: Lives w/ and daughter Other Information That Helps Us Care for You: No Feels Safe at Home: Yes Safety Concerns: Feels Safe At This Time Assistive Devices: Glasses and Hearing Aid - Bilateral Assistive Devices Comment: Pt. glasses and BL hearing aids at bedside Review of Systems All systems reviewed & are unremarkable except as noted in HPI & below. Physical Exam On physical examination of the left leg, there is a lot of swelling. There is some induration along the lateral thigh. There is a little bit of ecchymosis present at the skin. He does not have much of a knee joint effusion. I am unable to do any range of motion testing on him because of soreness and is unable to cooperate for a neurologic exam.. Constitutional WD/WN, vitals as above Eyes PERRL, conjunctivae normal, anicteric sclerae ENMT external ear and nose normal, oropharynx normal Neck trachea midline, no thyromegaly Respiratory normal respiratory effort Cardiovascular RRR, no murmur, no edema Gastrointestinal (Abdomen) normal bowel sounds, soft, nontender, no hepatosplenomegaly Psychiatric A+Ox3, euthymic affect Results & Data Results & Data Laboratory Results . Diagnostic Findings CT scan of the left thigh shows a very large anterior lateral intramuscular hematoma involving most of the vastus lateralis. Extends about 23 cm down the length of the thigh. CT scan of the left knee shows advanced osteoarthritis. There is a mild joint effusion.. PG Care Time/CCT Total # of Minutes Spent Total Time Spent with Patient: Total time spent is greater than 50% in coordination of care (as documented) at patient's floor/unit and/or counseling patient: Coding Level of Care Code 22189 Inpt Consult Level 4 Diagnoses Hematoma of left thigh S70.12XA
[2021-01-31] MEDS ORDERED: levETIRAcetam 500 MG TAB PO SCH (09:00)
[2021-01-31 09:22] LABS: Basophils # (auto) 0.04 K/uL (0-0.2); Basophils % (auto) 0.3 %; Eosinophils # (auto) 0.04 K/uL (0-0.5); Eosinophils % (auto) 0.3 %; Hematocrit (blood only) 24.2 % (42-52); Immature Granulocytes # (auto) 0.15 K/uL (0.00-0.02); Immature Granulocytes % (auto) 1.1 %; Lymphocytes # (auto) 1.57 K/uL (1.2-3.4); Lymphocytes % (auto) 11.2 %; Mean Corpuscular Hemoglobin 30.3 pg (25-34); Mean Corpuscular Hgb Conc 33.1 g/dL (32-36); Mean Corpuscular Volume 91.7 fL (80-100); Mean Platelet Volume 10.4 fL (7.4-10.4); Monocytes # (auto) 1.34 K/uL (0.11-0.59); Monocytes % (auto) 9.6 %; Neutrophils # (auto) 10.83 K/uL (1.4-6.5); Neutrophils % (auto) 77.5 %; Platelet Count 164 K/uL (130-400); RDW Coefficient of Variation 15.2 % (11.5-14.5); RDW Standard Deviation 50.9 fL (36.4-46.3); Red Blood Count 2.64 M/uL (4.7-6.1); White Blood Count 13.97 K/uL (4.8-10.8)
[2021-01-31 11:26] LABS: INR 1.2 (0.9-1.1); Prothrombin Time 12.2 Seconds (9.0-12.0)
[2021-01-31 11:40] LABS: BUN Creatinine Ratio 23.9 (10-20); Calcium 7.6 mg/dl (8.5-10.1); Creatinine Clr Calc Pharmacy 40.9 ml/min; Est GFR (African American) 43.2 ml/min; Est GFR (Non-African American) 37.3 ml/min; Potassium 4.4 mmol/L (3.5-5.1)
--- NOTE | 2021-01-31 12:00 | Communication Note ---
Date of Service: January 31, 2021 Neurology has been consulted to evaluate Mr. Josh Del Angel today after he was transferred from [facility] following 2 witnessed episodes of s yncope both occurring apparently while he was seated in the chair. No seizure activity was reported there was no incontinence and at baseline apparently he does have confusion variable degrees of mental status alteration. Is of lethargy etc. has a host of medical problems including tremulousness treated with Sinemet although there is no real hard evidence for Parkinson's here, orthostatic hypotension evaluated by Dr. 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 He has baseline cardiovascular issues including sick sinus syndrome has a pacemaker on board for symptomatic TIAs overall not sure how these were manifested Medications at home include acetaminophen atorvastatin bisacodyl carbidopa L- dopa 1.5 of the 25/100 tablets 3 times a day, vitamin B12 docusate and use now on some subcu heparin glucosamine metoprolol polyethylene glycol senna and Coumadin He has had repeat CT angiographic studies on admission which show diffuse atheromatous changes throughout the vertebrobasilar system but the previously diagnosed thrombus apparently has resolved and there is less than 50% stenoses of the carotid systems all outlined in the radiographic report and the CT scan shows no evidence for new infarctions Laboratory studies show leukocytosis hemoglobin of 8, slight left shift, mild hyperchloremia, and elevated BUN and creatinine with a clearance of 41 low total protein and albumin normal globulin trace ketonuria negative Covid Since admission he has been intermittently lethargic and then agitated and when I went in the room he was quite lethargic but would respond to noxious stimuli by withdrawal but then could not maintain any wakefulness did not make eye contact and basically the neurologic examination was not very helpful. There was however no evidence for spontaneous motor movements facial twitching spontaneous eye movements of any type Vital signs reveal blood pressure 153/76 pulse is 70 respirations are 18 he is afebrile he has good O2 saturation 97% I did not hear any carotid bruits There was obvious swelling of the left knee along with some warmth compatible with the underlying hematoma Again neurologic examination including cranial nerves station gait and coordination assessment of abnormal movements reflexes etc. was virtually impossible no reflexes were obviously present toes arms were neutral and complicated by some withdrawal and I could get a response by deep pinching of the nailbeds which resulted in withdrawal of both hands equally and some facial grimacing that appear to be symmetrical. The question raised was whether the events seen at [facility] were seizures but clinically I have my doubts. They sound like simple syncopal events but we are getting an EEG and this will be helpful and determining whether or not the current state of lethargy is due to something like nonconvulsive status epilepticus which again I doubt I do not know this man's baseline according to what I can glean from discussion with the nursing staff and there discussion with his daughter, there is some cognitive impairment at baseline along with fluctuation of mental status with some periods of agitation. I would not find this therefore to be atypical in the setting of a recent hospitalization transfers between institutions but we do need to be certain there is no new ongoing toxic or metabolic issue that may be causing this encephalopathy as well I would suggest that the attending physicians at [facility] who assessed the thrombosis be contacted regarding whether or not Coumadin should be continued in the setting in light of the hematoma. Judging from the orthopedics note however it does not appear that has been an acute change and I am not in my opinion will probably be adequately done with antiplatelet the conservative management might not be sufficient to resolve this issue without having to stop the anticoagulants Our CT angiographic study suggest the presence of diffuse intracranial atheromatous changes but no residual thrombus and treatment of this might be accomplished by antiplatelet drugs alone and minimize her risk for bleeding further into the thigh muscle and risking a compartment syndrome Unfortunately I am not at all familiar with his case or what transpired at [facility] and suggest therefore that those physicians reviewed his current CT angiographic studies and compare them to what might be available there and advise our hospitalist about how best to manage his anticoagulation here particularly in light of the complication of the hematoma I will interpret the EEG when it is done and will make periodic visits to his bedside I wonder parenthetically if he really needs the Sinemet but at this point he has been on it for years I see no reason to change it and stopping it suddenly might put him at risk for development of a "neuroleptic malignant syndrome" type of phenomenon with marked rigidity elevated CPK and increasing encephalopathy so I would continue the current medication Juan Villanueva MD The above note was generated utilizing voice recognition technology and it may have spelling errors punctuation errors pronoun usage here and semantic
--- NOTE | 2021-01-31 12:09 | Communication Note ---
Date of Service: January 31, 2021 I have reviewed the current medications of note that the patient has been loaded with Keppra based on a somewhat vague history of syncope without any observed seizure activity He is now on 500 g twice a day which is a low dose but unless EEG shows significant abnormalities which I doubt I will recommend that this medication be stopped and he simply be observed but again we need to wait for the results of the study Juan Villanueva MD
--- NOTE | 2021-01-31 14:54 | Electroencephalogram ---
EEG Procedure Note Date of Service January 31, 2021 Start / End Times Start Time: 0120 End Time: o140 Referring Physician Milton Jade MD History witnessed syncope times two question seizures Home Medication List Medication Instructions Recorded Confirmed Type acetaminophen 325 mg tablet 650 mg PO Q4H PRN 01/30/21 01/30/21 History atorvastatin 40 mg tablet 80 mg PO PM 01/30/21 01/30/21 History bisacodyl 10 mg rectal suppository 10 mg MI DAILY PRN 01/30/21 01/30/21 History carbidopa 25 mg-levodopa 100 mg 1.5 tab PO TID 01/30/21 01/30/21 History tablet cyanocobalamin (vitamin B-12) 1,000 mcg PO DAILY 01/30/21 01/30/21 History 1,000 mcg tablet docusate sodium 100 mg capsule 100 mg PO BID 01/30/21 01/30/21 History enoxaparin 100 mg/mL subcutaneous 100 mg SUBCUT Q12H 01/30/21 01/30/21 History syringe glucosamine sulfate 500 mg tablet 500 mg PO BID 01/30/21 01/30/21 History (Glucosamine) metoprolol succinate 25 mg 25 mg PO DAILY 01/30/21 01/30/21 History tablet,extended release 24 hr polyethylene glycol 3350 17 17 g PO DAILY PRN 01/30/21 01/30/21 History gram/dose oral powder sennosides 8.6 mg tablet (Senna 8.6 mg PO .DAILY@LUNCH PRN 01/30/21 01/30/21 History Laxative) warfarin 5 mg tablet 5 mg PO UD 01/30/21 01/30/21 History Inpatient Medication List Atorvastatin Calcium (Atorvastatin 40 Mg Tab) 80 mg PO PM GUICHO Stop: 03/01/21 22:06 Last Admin: 01/30/21 22:52 Dose: 80 mg Documented by: [id number] Carbidopa/Levodopa (Carbidopa/Levodopa 25/100mg Tab) 1.5 tab PO TID GUICHO Stop: 03/01/21 22:06 Last Admin: 01/31/21 10:38 Dose: Not Given Documented by: [id number] Admin: 01/30/21 22:52 Dose: 1.5 tab Documented by: [id number] Cyanocobalamin (Cyanocobalamin 500 Mcg Tablet (Vitamin B-12)) 1,000 mcg PO DAILY GUICHO Stop: 03/02/21 08:59 Last Admin: 01/31/21 10:38 Dose: Not Given Documented by: [id number] Lorazepam (Ativan) 1 mg in 2 mls @ 0.5 mls/min IV Q10M PRN PRN Reason: seizures Stop: 03/01/21 22:40 Last Admin: 01/31/21 01:37 Dose: 0.5 mls/min Documented by: [id number] Levetiracetam (Levetiracetam 500 Mg Tab) 500 mg PO BID GUICHO Stop: 03/02/21 08:59 Last Admin: 01/31/21 08:14 Dose: 500 mg Documented by: [id number] Lidocaine (Lidocaine 5% 1 Patch) 1 patch TD QAM GUIC[facility] Stop: 03/02/21 08:59 Last Admin: 01/31/21 08:15 Dose: 1 patch Documented by: [id number] Metoprolol Succinate (Metoprolol Succ 25mg Ext Rel Tab) 25 mg PO DAILY GUIC[facility] Stop: 03/02/21 08:59 Last Admin: 01/31/21 10:39 Dose: Not Given Documented by: [id number] Miscellaneous (Remove Lidoderm Patch) 1 ea N/A DAILY@2100 GU[facility] Stop: 03/01/21 22:06 Last Admin: 01/30/21 22:13 Dose: 1 ea Documented by: [id number] Discontinued Medications Docusate Sodium (Docusate Sodium 100 Mg Cap) 100 mg PO BID GUICHO Stop: 03/01/21 22:06 Last Admin: 01/30/21 22:52 Dose: Not Given Documented by: [id number] Sodium Chloride (Nss 1000ml) 1,000 mls @ 125 mls/hr IV .Q8H GUIC[facility] Stop: 03/01/21 14:59 Last Infusion: 01/30/21 22:10 Dose: 0 mls/hr Documented by: [id number] Admin: 01/30/21 15:41 Dose: 125 mls/hr Documented by: [id number] Sodium Chloride (Nss 1000ml) 1,000 mls @ 80 mls/hr IV .[id number] [facility] Stop: 01/31/21 10:36 Last Infusion: 01/31/21 05:12 Dose: 80 mls/hr Documented by: [id number] Infusion: 01/31/21 00:25 Dose: 0 mls/hr Documented by: [id number] Admin: 01/30/21 22:22 Dose: 80 mls/hr Documented by: [id number] Thiamine HCl 100 mg/ Syringe 10 mls @ 2 mls/min IV ONE ONE Stop: 01/30/21 23:04 Last Admin: 01/30/21 23:14 Dose: 2 mls/min Documented by: [id number] Phytonadione 10 mg/ Sodium (Chloride) 51 mls @ 102 mls/hr IV ONE ONE Stop: 01/30/21 23:29 Last Infusion: 01/30/21 23:45 Dose: 0 mls/hr Documented by: [id number] Admin: 01/30/21 23:14 Dose: 102 mls/hr Documented by: [id number] Levetiracetam 1,000 mg/ Sodium (Chloride) 110 mls @ 440 mls/hr IV NOW STA Stop: 01/30/21 23:43 Last Infusion: 01/31/21 00:02 Dose: 0 mls/hr Documented by: [id number] Admin: 01/30/21 23:47 Dose: 440 mls/hr Documented by: [id number] Ioversol (Optiray 320 125ml) 119 ml IV ONCE ONE Stop: 01/30/21 16:11 Last Admin: 01/30/21 16:14 Dose: 119 ml Documented by: [id number] Description This is a 21 electrode EEG with a single channel dedicated to limited EKG. The electrodes were placed in accordance with the International 10-20 system.This EEG was notable for recording while patient was intermittently agitated and unfortunate with quite a number of muscle movement artifact but overall there are long interval junctional during which the EEG is interpretable. Drowsiness and light sleep were not clearly recorded photic stimulation was performed Snoring what appears by analysis to be clinical weakness there is evidence for a background rhythm in the upper theta range of 6 to 8 Hz maximum frequency and of up to 80 V maximum amplitude which appears to be symmetrical in maximum posterior head regions. Polymorphic mid to lower frequency modest voltage theta activity intermixed with excellent waveforms in the delta range seen centrally and symmetrically. Beta activity is difficult to ascertain due to overlying muscle movement artifact and frontal regions Photic simulation provokes minimal driving response No evidence for potentially epileptogenic activity initially Interpretation Moderately diffusely abnormal nonfocal EEG consistent with a generalized encephalopathy and with no associated lateralizing features or potentially epileptogenic activity Clinical Correlation This EEG would be typical of a nonspecific generalized encephalopathy entirely nonspecific type. There is no evidence for ongoing potentially epileptogenic activity or ongoing evidence for rhythmic activity that might bring to mind the syndrome of nonconvulsive status epilepticus Juan Villanueva MD
--- NOTE | 2021-01-31 15:01 | Communication Note ---
Date of Service: January 31, The EEG on record revealed evidence for a generalized moderate encephalopathy without focality without potentially epileptogenic activity in light of the atypical history which suggest syncope with anything else I would stop the Keppra observe him clinically and I will check back with him tomorrow either by direct visit or by chart Juan Villanueva MD
--- NOTE | 2021-01-31 15:26 | Hospitalist Progress Note ---
Date of Service January 31, 2021 Assessment & Plan (1) Hematoma of left thigh: Plan: Has been complaining of left knee pain since around 01/23 Condition got worse at rehab in [facility] and unbearable as of yesterday Increasing pain could be the cause of possible syncopal episode without any loss of consciousness CT scan did show extensive intramuscular hematoma within the left quadriceps musculature Appreciate Ortho input and recommendation The Coumadin has been reversed with intravenous vitamin K Will observe and may need blood transfusion and no indication for surgery Advised PT evaluation (2) Syncope: Plan: Patient is 85-year-old male with PMH HTN, TIA, CKD III, parkinsonian features, h/o sick sinus syndrome s/p pacemaker presented to ER from [facility] rehab for 2 syncopal episodes today when sitting up. Denies tonic-clonic features, loss control of bowel/bladder CTA head and neck: Impression: No acute intracranial abnormality. Atherosclerotic plaque of the right greater than left carotid bulbs. There is approximately 50% stenosis of the proximal cervical segment of the right ICA with less than 50% stenosis on the left. Multifocal high-grade stenoses of the distal right vertebral and right posterior cerebral arteries. EKG did not show any arrhythmias or any other acute changes May be secondary to orthostatic hypotension, symptomatic anemia, dysautonomia, arrhythmia History echo 01/18/2021: EF: 55-59%, grade 1 diastolic dysfunction, aortic root mildly enlarged, mild aortic vegetation, mild mitral regurgitation Obtain orthostatic vitals Questionable seizure-like activity Discussed with the and he has had symptoms suggestive of seizure for a long time Evaluated by neurologist in [place] and was told that it was due to Parkinson's disease Following an episode the patient remains semiresponsive for some time even at home when he becomes very difficult to be aroused Has had seizure-like activity last night and was given Keppra Has had an episode of semiresponsiveness this morning which cleared later on Appreciate neurology input and recommendationdoubt for any seizure and will discontinue Keppra Awaiting EEG (3) Stroke: Plan: History TIA. Recent History of basilar artery thrombosis Recent hospitalization at [facility] 01/18/2021-02/21/2021 for episode bilateral leg weakness and syncope. CTA head showed a R mid V2-distal V4 artery occlusion with additional subocclusive thrombus extending to the tip of the basilar artery. Initial treatment IV heparin then transition warfarin with a Lovenox bridge after interval imaging showed stability of the thrombus Today CTA head and neck: No acute intracranial abnormality. Atherosclerotic plaque of the right greater than left carotid bulbs. There is approximately 50% stenosis of the proximal cervical segment of the right ICA with less than 50% stenosis on the left. Multifocal high-grade stenoses of the distal right vertebral and right posterior cerebral arteries INR: 3.1 Monitor INR Continue atorvastatin and hold Coumadin for now CT of the head remained unremarkable Doubt any new stroke (4) Anemia: Plan: H/H: 8.8/27. Baseline Hgb ~12. Was 11.2 on 01/29/2021 INR: 3.1 Denies melena, hematochezia, hematuria, epistaxis CT abdomen pending Hemoccult stool pending Suspect patient may have hemarthrosis left knee Monitor H&H, transfuse as needed (5) Knee effusion, left: Plan: Left knee edema since admission at [facility]. 01/21/2021 left knee x-ray shows large nonspecific joint effusion. Orthopedics had seen patient at [facility] and recommended conservative management Patient with continued left knee pain and increased edema. Now with more significant anemia DDx: Hemarthrosis Obtain CT left knee Left knee pain is secondary to hematoma the left thigh muscles and is complicated by left knee osteoarthritis May need injection down the line (6) Acute kidney injury superimposed on CKD: Plan: Cr: 1.7. Baseline creatinine 1.4 per outpatient records. Creatinine was 1.4 on 01/29/2021 Monitor renal functions, avoid nephrotoxic agents when possible Gentle IVF-a little better (7) Sick sinus syndrome: Plan: S/p pacemaker Pacer interrogation (8) Parkinsonian features: Plan[facility] Continue carbidopa levodopa He was told by the nurse and neurologist that questionable seizure-like activity is due to parkinsonism (9) HTN (hypertension): Plan: Stable Continue metoprolol succinate DVT Prophylaxis -On Coumadin Full Code as per discussion with pt Follows with Dr Newton for routine care Admission and Anticipated Discharge Date Admission Date: January 30, 2021 Subjective 01/31/2021 The patient was seen and examined in medical telemetry unit He has been complaining of left lower extremity pain and left knee pain for the last few days at [facility] Condition got worse today with associated slurred speech and loss taken to the emergency room He was noted to have huge hematoma involving the left thigh with INR of 3.1 He was noted to be decreased in response this morning which has been noted before as per the and likely secondary to Parkinson's disease as she was told by the neurologist During examination later on he was speaking normally Review of Systems Review of Systems: All systems reviewed and are unremarkable except as noted below Physical Exam Physical Exam: Lying in bed comfortably Constitutional: well developed, well nourished, + ill appearing and + obese Eyes: PERRL, conjunctivae normal, anicteric sclerae ENMT: external ear and nose normal, oropharynx normal Respiratory: no respiratory distress and no cough Auscultation: lungs clear to auscultation bilaterally Cardiovascular: Rate/Rhythm: regular rate and regular rhythm; not tachycardic Heart Sounds: normal S1 and normal S2; no murmur Extremities: no edema Gastrointestinal (Abdomen): Inspection/Auscultation: normal bowel sounds; abdomen not distended Musculoskeletal: No acute arthritis in any joint Neurologic: Alert, awake and oriented x3 Results & Data Results & Data ([facility]) Vital Signs (Past 12 Hours) Vital Signs Temp Pulse Pulse Resp BP BP Pulse Ox 01/31/21 11:39 36.5 C 70 18 153/76 H 97 01/31/21 07:40 36.7 C 76 20 152/63 H 96 01/31/21 07:28 70 01/31/21 04:48 36.5 C 72 18 138/79 95 01/31/21 04:02 36.7 C 71 18 146/75 H 98 01/31/21 04:00 36.7 C 71 18 146/75 H 98 Laboratory Results Short CBC 01/30/21 01/31/21 Range/Units 23:14 08:51 WBC 13.97 H (4.8-10.8) K/uL Hgb 7.6 L 8.0 L (14.0-18.0) g/dL Hct 23.1 L 24.2 L (42-52) % Plt Count 164 (130-400) K/uL BMP 01/31/21 10:59 Sodium 139 Potassium 4.4 Chloride 110 H Carbon Dioxide 23 BUN 40 H Creatinine 1.65 H Glucose 126 H Calcium 7.6 L Urine 01/30/21 Range/Units 20:40 Urine Color Yellow Urine Appearance Clear (Clear) Urine pH 5.0 (4.5-7.5) Ur Specific [place] > 1.045 H (1.000-1.030) Urine Protein Negative (Negative) Urine Glucose (UA) Negative (Negative) Medications Administered Current Inpatient Medications Acetaminophen (Acetaminophen 325 Mg Tab) 650 mg PO Q4H PRN PRN Reason: Pain or Fever Stop: 03/01/21 22:06 Atorvastatin Calcium (Atorvastatin 40 Mg Tab) 80 mg PO PM GUICHO Stop: 03/01/21 22:06 Last Admin: 01/30/21 22:52 Dose: 80 mg Documented by: Bisacodyl (Bisacodyl 10 Mg Supp) 10 mg MO DAILY PRN PRN Reason: Constipation Stop: 03/01/21 22:06 Carbidopa/Levodopa (Carbidopa/Levodopa 25/100mg Tab) 1.5 tab PO TID [facility] Stop: 03/01/21 22:06 Last Admin: 01/31/21 15:18 Dose: Not Given Documented by: Cyanocobalamin (Cyanocobalamin 500 Mcg Tablet (Vitamin B-12)) 1,000 mcg PO CORDELL Y [facility] Stop: 03/02/21 08:59 Last Admin: 01/31/21 10:38 Dose: Not Given Documented by: Lorazepam (Ativan) 1 mg in 2 mls @ 0.5 mls/min IV Q10M PRN PRN Reason: seizures Stop: 03/01/21 22:40 Last Admin: 01/31/21 01:37 Dose: 0.5 mls/min Documented by: Levetiracetam (Levetiracetam 500 Mg Tab) 500 mg PO BID [facility] Stop: 03/02/21 08:59 Last Admin: 01/31/21 08:14 Dose: 500 mg Documented by: Lidocaine (Lidocaine 5% 1 Patch) 1 patch TD QAM [facility] Stop: 03/02/21 08:59 Last Admin: 01/31/21 08:15 Dose: 1 patch Documented by: Metoprolol Succinate (Metoprolol Succ 25mg Ext Rel Tab) 25 mg PO DAILY [facility] Stop: 03/02/21 08:59 Last Admin: 01/31/21 10:39 Dose: Not Given Documented by: Miscellaneous (Remove Lidoderm Patch) 1 ea N/A DAILY@2100 [facility] Stop: 03/01/21 22:06 Last Admin: 01/30/21 22:13 Dose: 1 ea Documented by: Ondansetron HCl (Ondansetron Inj 2 Mg/Ml 2 Ml Vial) 4 mg IV Q6H PRN PRN Reason: Nausea Stop: 03/01/21 22:06 Polyethylene Glycol (Polyethylene (Miralax) 17 Gm Pack) 17 gm PO DAILY PRN PRN Reason: Constipation Stop: 03/01/21 22:06 Sennosides (Senna 8.6 Mg Tab) 8.6 mg PO QDL PRN PRN Reason: Constipation Stop: 03/01/21 22:06
[2021-01-31] MEDS ORDERED: WARFARIN SOD 5 MG TAB PO SCH (18:00)
[2021-01-31] MEDS: ATORVASTATIN 40 MG TAB PO SCH (20:34)
[2021-02-01] MEDS: LORazepam 1 MG/2 ML VIAL IV PRN (02:06)
[2021-02-01 08:36] LABS: Basophils # (auto) 0.04 K/uL (0-0.2); Basophils % (auto) 0.3 %; Eosinophils # (auto) 0.12 K/uL (0-0.5); Eosinophils % (auto) 0.9 %; Hematocrit (blood only) 21.1 % (42-52); Immature Granulocytes # (auto) 0.08 K/uL (0.00-0.02); Immature Granulocytes % (auto) 0.6 %; Lymphocytes # (auto) 0.97 K/uL (1.2-3.4); Lymphocytes % (auto) 7.3 %; Mean Corpuscular Hemoglobin 29.7 pg (25-34); Mean Corpuscular Hgb Conc 33.2 g/dL (32-36); Mean Corpuscular Volume 89.4 fL (80-100); Mean Platelet Volume 10.3 fL (7.4-10.4); Monocytes # (auto) 1.57 K/uL (0.11-0.59); Monocytes % (auto) 11.9 %; Neutrophils # (auto) 10.43 K/uL (1.4-6.5); Platelet Count 185 K/uL (130-400); RDW Coefficient of Variation 15.3 % (11.5-14.5); RDW Standard Deviation 49.7 fL (36.4-46.3); Red Blood Count 2.36 M/uL (4.7-6.1); White Blood Count 13.21 K/uL (4.8-10.8)
[2021-02-01 08:45] LABS: Prothrombin Time 10.4 Seconds (9.0-12.0)
[2021-02-01] MEDS ORDERED: SODIUM CHLORIDE 0.9% 250 ML IV PRN (08:47)
[2021-02-01 08:52] LABS: BUN Creatinine Ratio 28.7 (10-20); Calcium 8.1 mg/dl (8.5-10.1); Creatinine Clr Calc Pharmacy 45.8 ml/min; Est GFR (African American) 48.9 ml/min; Est GFR (Non-African American) 42.2 ml/min
[2021-02-01 09:00] LABS: RBC Morphology Unremarkable
--- NOTE | 2021-02-01 11:50 | Communication Note ---
Date of Service: February 01, 2021 I saw Mr. Del Angel again today. He is lethargic but his nurse is claiming he will speak to them apparently spoke to her relative by phone I have reviewed Dr. Dailey's notes relating his conversation with the patient's daughter and the history that suggests he has had episodes of seizure-like activity for years and has been attributed to his Parkinson's disease and occasionally patients with this disorder will suddenly lose consciousness drop into what appears to be asleep state being agitated confused and then return to normal all of which is not associate with any potentially epileptiform activity He is apparently followed at [facility] for his Parkinson's and at this point I am not going to suggest obviously we make any changes in his medications His EEG revealed generalized slowing but no seizure-like activity consistent with his age and an underlying encephalopathy of nonspecific type Exam today is difficult as he really does not respond very well but according to his nurse he has responded and he is capable of getting her more agitated and is receiving a transfusion and she is concerned he may point out so it appears that there is not a lot of significant motor paresis At this point neurology is going to continue to recommend no anticonvulsant therapy. I suspect his episodes of unresponsiveness were the part of his Parkinson disease related episodes or more likely hypotension due to blood volume loss and underlying orthostatic hypotensive tendencies. We are going to sign off the case at this point but will be happy to reevaluate him if anything would change or if unequivocal clinical seizure-like activity was demonstrated at which point we would request another EEG Juan Villanueva MD
[2021-02-01] MEDS: HYDROmorphone INJ 0.5 MG/0.5 ML SYR IV PRN ×2 (12:25→19:23)
[2021-02-01] MEDS: CYANOCOBALAMIN 500 MCG TABLET (VITAMIN B-12) PO SCH (12:30)
[2021-02-01] MEDS: LIDOCAINE 5% 1 PATCH TD SCH (12:30)
[2021-02-01] MEDS: CARBIDOPA/LEVODOPA 25/100MG TAB PO SCH ×3 (12:31→21:15)
[2021-02-01] MEDS: METOPROLOL SUCC 25MG EXT REL TAB PO SCH (12:31)
[2021-02-01] MEDS ORDERED: FUROSEMIDE 40 MG in SYRINGE 0 ML IV ONE (12:42)
--- NOTE | 2021-02-01 14:23 | Orthopedic Progress Note ---
Date of Service February 01, 2021 Assessment & Plan (1) Hematoma of left thigh: He has a large hematoma in his left thigh. This can be treated nonsurgical. His INR is down to 1.0. He can be up and weightbearing as tolerated. I will probably be pretty sore for a little while while his body resorbs the hematoma. At this point it is conservative treatment only for his left leg. Orthopedics will sign off. He only needs to follow-up in our office on an as-needed basis. If you have any further questions please feel free to contact me at [phone] Subjective Josh was seen and examined at bedside. He has advanced dementia. He is unable to give me any symptomatic update on how his leg feels. Therapy was canceled yesterday due to his CT scans and he has not been up out of bed yet. Overall the status with his leg seems relatively unchanged.. Review of Systems All systems reviewed & are unremarkable except as noted in HPI & below. Physical Exam On physical examination of the left leg there is still swelling throughout. There are some induration and hardness more in the anterolateral aspect. There is a little bit of ecchymosis anteriorly. Any range of motion of his knee causes pain in his thigh.. Constitutional WD/WN, vitals as above Eyes PERRL, conjunctivae normal, anicteric sclerae ENMT external ear and nose normal, oropharynx normal Neck trachea midline, no thyromegaly Respiratory normal respiratory effort Cardiovascular RRR, no murmur, no edema Gastrointestinal (Abdomen) normal bowel sounds, soft, nontender, no hepatosplenomegaly Psychiatric A+Ox3, euthymic affect Results & Data Results & Data Laboratory Results . Diagnostic Findings . PG Care Time/CCT Total # of Minutes Spent Total Time Spent with Patient: Total time spent is greater than 50% in coordination of care (as documented) at patient's floor/unit and/or counseling patient: Coding Level of Care Code 18564 Subseq Hosp Care Lvl 2 Diagnoses Hematoma of left thigh S70.12XA
--- NOTE | 2021-02-01 14:56 | Hospitalist Progress Note ---
Date of Service February 01, 2021 Assessment & Plan (1) Hematoma of left thigh: Plan: Has been complaining of left knee pain since around 01/23 Condition got worse at rehab in [facility] and unbearable as of yesterday Increasing pain could be the cause of possible syncopal episode without any loss of consciousness CT scan did show extensive intramuscular hematoma within the left quadriceps musculature Appreciate Ortho input and recommendation The Coumadin has been reversed with intravenous vitamin K INR has been 1.0 on 02/01/2021 Ortho signed off with PT recommendation and follow-up as an outpatient Acute blood loss anemia Secondary to hemorrhage as above Hemoglobin dropped to 7.0 as of 02/01/2021 We will transfuse 2 units of PRBC Lasix will be given in between Monitor H&H (2) Syncope: Plan: Patient is 85-year-old male with PMH HTN, TIA, CKD III, parkinsonian features, h/o sick sinus syndrome s/p pacemaker presented to ER from [facility]hab for 2 syncopal episodes today when sitting up. Denies tonic-clonic features, loss control of bowel/bladder CTA head and neck: Impression: No acute intracranial abnormality. Atherosclerotic plaque of the right greater than left carotid bulbs. There is approximately 50% stenosis of the proximal cervical segment of the right ICA with less than 50% stenosis on the left. Multifocal high-grade stenoses of the distal right vertebral and right posterior cerebral arteries. EKG did not show any arrhythmias or any other acute changes May be secondary to orthostatic hypotension, symptomatic anemia, dysautonomia, arrhythmia History echo 01/18/2021: EF: 55-59%, grade 1 diastolic dysfunction, aortic root mildly enlarged, mild aortic vegetation, mild mitral regurgitation Obtain orthostatic vitals Questionable seizure-like activity Discussed with the and he has had symptoms suggestive of seizure for a long time Evaluated by neurologist in [place] and was told that it was due to Parkinson's disease Following an episode the patient remains semiresponsive for some time even at home when he becomes very difficult to be aroused Has had seizure-like activity last night and was given Keppra Has had an episode of semiresponsiveness this morning which cleared later on Appreciate neurology input and recommendationdoubt for any seizure and will discontinue Keppra Awaiting EEG-no EEG evidence of seizures Keppra has been discontinued and neurology signed off (3) Stroke: Plan: History TIA. Recent History of basilar artery thrombosis Recent hospitalization at [facility] 01/18/2021-02/21/2021 for episode bilateral leg weakness and syncope. CTA head showed a R mid V2-distal V4 artery occlusion with additional subocclusive thrombus extending to the tip of the basilar artery. Initial treatment IV heparin then transition warfarin with a Lovenox bridge after interval imaging showed stability of the thrombus Today CTA head and neck: No acute intracranial abnormality. Atherosclerotic plaque of the right greater than left carotid bulbs. There is approximately 50% stenosis of the proximal cervical segment of the right ICA with less than 50% stenosis on the left. Multifocal high-grade stenoses of the distal right vertebral and right posterior cerebral arteries INR: 3.1 Monitor INR Continue atorvastatin and hold Coumadin for now CT of the head remained unremarkable No evidence of a stroke Will need to discuss with [facility] neurologist about further anticoagulation (4) Anemia: Plan: As above (5) Knee effusion, left: Plan: Left knee edema since admission at [facility]. 01/21/2021 left knee x-ray shows large nonspecific joint effusion. Orthopedics had seen patient at [facility] and recommended conservative management Patient with continued left knee pain and increased edema. Now with more significant anemia DDx: Hemarthrosis Obtain CT left knee Left knee pain is secondary to hematoma the left thigh muscles and is complicated by left knee osteoarthritis Do not think any requirement of knee injection (6) Acute kidney injury superimposed on CKD: Plan: Cr: 1.7. Baseline creatinine 1.4 per outpatient records. Creatinine was 1.4 on 01/29/2021 Monitor renal functions, avoid nephrotoxic agents when possible Gentle IVF-a little better Creatinine has been improving which is 1.49 as of 02/01/2021 (7) Sick sinus syndrome: Plan: S/p pacemaker Pacer interrogation (8) Parkinsonian features: Plan: [place]y [place] Continue carbidopa levodopa He was told by the nurse and neurologist that questionable seizure-like activity is due to parkinsonism (9) HTN (hypertension): Plan: Stable Continue metoprolol succinate DVT Prophylaxis -On Coumadin Full Code as per discussion with pt Follows with Dr Newton for routine care Admission and Anticipated Discharge Date Admission Date: January 30, 2021 Subjective 01/31/2021 The patient was seen and examined in medical telemetry unit He has been complaining of left lower extremity pain and left knee pain for the last few days at [facility] Condition got worse today with associated slurred speech and loss taken to the emergency room He was noted to have huge hematoma involving the left thigh with INR of 3.1 He was noted to be decreased in response this morning which has been noted before as per the and likely secondary to Parkinson's disease as she was told by the neurologist During examination later on he was speaking normally 01/02/2021 The patient was seen and examined in medical telemetry unit He has been feeling much better but looked a little bit drowsy today likely secondary to use of medication Still complains of pain in the left leg Review of Systems Review of Systems: All systems reviewed and are unremarkable except as noted below Physical Exam Physical Exam: Lying in bed comfortably Constitutional: well developed, well nourished, + ill appearing and + obese Eyes: PERRL, conjunctivae normal, anicteric sclerae ENMT: external ear and nose normal, oropharynx normal Neck: trachea midline, no thyromegaly Respiratory: no respiratory distress and no cough Auscultation: lungs clear to auscultation bilaterally Cardiovascular: Rate/Rhythm: regular rate and regular rhythm; not tachycardic Heart Sounds: normal S1 and normal S2; no murmur Extremities: no edema Gastrointestinal (Abdomen): Inspection/Auscultation: normal bowel sounds; abdomen not distended Musculoskeletal: Left lower extremity swollen and is extremely painful with movement Neurologic: Alert, awake and oriented x3. Generally weak but no focal sensory and motor deficit appreciated Results & Data Results & Data ([facility]) Vital Signs (Past 12 Hours) Vital Signs Temp Pulse Pulse Resp BP BP Pulse Ox 02/01/21 14:20 36.3 C L 78 18 149/74 H 95 02/01/21 13:50 36.7 C 77 16 160/75 H 97 02/01/21 13:32 36.7 C 76 16 137/73 99 02/01/21 13:20 36.3 C L 77 16 143/71 H 97 02/01/21 12:15 36.8 C 75 20 140/68 95 02/01/21 11:45 36.6 C 75 20 145/71 H 02/01/21 10:45 36.8 C 69 20 144/70 H 02/01/21 10:15 36.7 C 76 20 143/69 H 02/01/21 09:46 36.4 C L 73 20 139/68 02/01/21 09:31 36.6 C 75 20 124/67 95 02/01/21 09:27 36.6 C 75 20 124/67 02/01/21 09:14 36.8 C 76 20 126/67 02/01/21 07:49 36.7 C 59 L 16 151/72 H 93 02/01/21 07:17 70 02/01/21 04:00 37.1 C 57 L 20 138/80 97 Laboratory Results Short CBC 02/01/21 Range/Units 08:06 WBC 13.21 H (4.8-10.8) K/uL Hgb 7.0 L (14.0-18.0) g/dL Hct 21.1 L (42-52) % Plt Count 185 (130-400) K/uL BMP 02/01/21 08:06 Sodium 141 Potassium 4.0 Chloride 110 H Carbon Dioxide 24 BUN 43 H Creatinine 1.49 H Glucose 122 H Calcium 8.1 L Medications Administered Current Inpatient Medications Acetaminophen (Acetaminophen 325 Mg Tab) 650 mg PO Q4H PRN PRN Reason: Pain or Fever Stop: 03/01/21 22:06 Atorvastatin Calcium (Atorvastatin 40 Mg Tab) 80 mg PO PM GUICHO Stop: 03/01/21 22:06 Last Admin: 01/31/21 20:34 Dose: Not Given Documented by: Bisacodyl (Bisacodyl 10 Mg Supp) 10 mg FL DAILY PRN PRN Reason: Constipation Stop: 03/01/21 22:06 Carbidopa/Levodopa (Carbidopa/Levodopa 25/100mg Tab) 1.5 tab PO TID GUICHO Stop: 03/01/21 22:06 Last Admin: 02/01/21 14:40 Dose: Not Given Documented by: Cyanocobalamin (Cyanocobalamin 500 Mcg Tablet (Vitamin B-12)) 1,000 mcg PO DAILY GUICHO Stop: 03/02/21 08:59 Last Admin: 02/01/21 12:30 Dose: Not Given Documented by: Hydromorphone HCl (Hydromorphone Inj 0.5 Mg/0.5 Ml Syr) 0.25 mg IV Q6H PRN PRN Reason: Pain Stop: 02/15/21 05:28 Last Admin: 02/01/21 12:25 Dose: 0.25 mg Documented by: Lorazepam (Ativan) 1 mg in 2 mls @ 0.5 mls/min IV Q10M PRN PRN Reason: seizures Stop: 03/01/21 22:40 Last Admin: 02/01/21 02:06 Dose: 0.5 mls/min Documented by: Sodium Chloride (Nss) 250 mls @ 15 mls/hr IV .[id number] PRN PRN Reason: For Transfusion Stop: 02/01/21 18:47 Levetiracetam (Levetiracetam 500 Mg Tab) 500 mg PO BID GUICHO Stop: 03/02/21 08:59 Last Admin: 01/31/21 08:14 Dose: 500 mg Documented by: Lidocaine (Lidocaine 5% 1 Patch) 1 patch TD QAM GUICHO Stop: 03/02/21 08:59 Last Admin: 02/01/21 12:30 Dose: Not Given Documented by: Metoprolol Succinate (Metoprolol Succ 25mg Ext Rel Tab) 25 mg PO DAILY GUICHO Stop: 03/02/21 08:59 Last Admin: 02/01/21 12:31 Dose: 25 mg Documented by: Miscellaneous (Remove Lidoderm Patch) 1 ea N/A DAILY@2100 [facility] Stop: 03/01/21 22:06 Last Admin: 01/31/21 20:35 Dose: Not Given Documented by: Ondansetron HCl (Ondansetron Inj 2 Mg/Ml 2 Ml Vial) 4 mg IV Q6H PRN PRN Reason: Nausea Stop: 03/01/21 22:06 Oxycodone HCl (Oxycodone Hcl Ir 5 Mg Tab (Immediate Release)) 5 mg PO Q4H PRN PRN Reason: Pain Stop: 02/15/21 05:28 Polyethylene Glycol (Polyethylene (Miralax) 17 Gm Pack) 17 gm PO DAILY PRN PRN Reason: Constipation Stop: 03/01/21 22:06 Sennosides (Senna 8.6 Mg Tab) 8.6 mg PO QDL PRN PRN Reason: Constipation Stop: 03/01/21 22:06
[2021-02-01] MEDS: ATORVASTATIN 40 MG TAB PO SCH (21:15)
[2021-02-02] MEDS: HYDROmorphone INJ 0.5 MG/0.5 ML SYR IV PRN ×2 (06:23→20:49)
[2021-02-02 06:36] LABS: Basophils # (auto) 0.04 K/uL (0-0.2); Basophils % (auto) 0.3 %; Eosinophils # (auto) 0.14 K/uL (0-0.5); Eosinophils % (auto) 1.1 %; Hematocrit (blood only) 26.8 % (42-52); Immature Granulocytes # (auto) 0.07 K/uL (0.00-0.02); Immature Granulocytes % (auto) 0.5 %; Lymphocytes # (auto) 1.07 K/uL (1.2-3.4); Lymphocytes % (auto) 8.2 %; Mean Corpuscular Hemoglobin 29.9 pg (25-34); Mean Corpuscular Hgb Conc 33.6 g/dL (32-36); Mean Platelet Volume 10.1 fL (7.4-10.4); Neutrophils % (auto) 79.9 %; Platelet Count 176 K/uL (130-400); RDW Coefficient of Variation 15.5 % (11.5-14.5); RDW Standard Deviation 49.4 fL (36.4-46.3); Red Blood Count 3.01 M/uL (4.7-6.1); White Blood Count 13.02 K/uL (4.8-10.8)
[2021-02-02 06:52] LABS: BUN Creatinine Ratio 29.7 (10-20); Calcium 8.1 mg/dl (8.5-10.1); Creatinine Clr Calc Pharmacy 55.7 ml/min; Est GFR (African American) 62.3 ml/min; Est GFR (Non-African American) 53.7 ml/min; Magnesium 2.1 mg/dl (1.8-2.4)
[2021-02-02 06:53] LABS: Phosphorus 2.7 mg/dl (2.5-4.9)
[2021-02-02] MEDS: CYANOCOBALAMIN 500 MCG TABLET (VITAMIN B-12) PO SCH (08:14)
[2021-02-02] MEDS: METOPROLOL SUCC 25MG EXT REL TAB PO SCH (08:14)
[2021-02-02] MEDS: LIDOCAINE 5% 1 PATCH TD SCH (08:14)
[2021-02-02] MEDS: CARBIDOPA/LEVODOPA 25/100MG TAB PO SCH ×3 (08:14→20:39)
--- NOTE | 2021-02-02 15:02 | Hospitalist Progress Note ---
Date of Service February 02, 2021 Assessment & Plan (1) Hematoma of left thigh: Plan: Has been complaining of left knee pain since around 01/23 Condition got worse at rehab in [facility] and unbearable. Increasing pain could be the cause of possible syncopal episode without any loss of consciousness CT scan did show extensive intramuscular hematoma within the left quadriceps musculature Appreciate Ortho input and recommendation. INR was reversed on admission. Coumadin has been on hold. Acute blood loss anemia Secondary to hemorrhage as above Hemoglobin dropped to 7.0 as of 02/01/2021 Did receive 2 units of PRBC. Hemoglobin today at 9. Continue to trend daily CBC. (2) Syncope: Plan: Patient is 85-year-old male with PMH HTN, TIA, CKD III, parkinsonian features, h/o sick sinus syndrome s/p pacemaker presented to ER from [facility] for 2 syncopal episodes today when sitting up. Denies tonic-clonic features, loss control of bowel/bladder CTA head and neck: Impression: No acute intracranial abnormality. Atherosclerotic plaque of the right greater than left carotid bulbs. There is approximately 50% stenosis of the proximal cervical segment of the right ICA with less than 50% stenosis on the left. Multifocal high-grade stenoses of the distal right vertebral and right posterior cerebral arteries. EKG did not show any arrhythmias or any other acute changes May be secondary to orthostatic hypotension, symptomatic anemia, dysautonomia, arrhythmia History echo 01/18/2021: EF: 55-59%, grade 1 diastolic dysfunction, aortic root mildly enlarged, mild aortic vegetation, mild mitral regurgitation Today patient is hemodynamically doing fine. Further episodes of syncope. Continue to work with PT/OT. Questionable seizure-like activity Discussed with the and he has had symptoms suggestive of seizure for a long time Evaluated by neurologist in [place] and was told that it was due to Parkinson's disease Following an episode the patient remains semiresponsive for some time even at home when he becomes very difficult to be aroused Has had seizure-like activity last night and was given Keppra Appreciate neurology input and recommendationdoubt for any seizure and will discontinue Keppra EEG without evidence of seizures Keppra has been discontinued and neurology signed off. On 02/02 patient had again another episode of shakiness followed by confusion. Spoke with neurology. No new recommendations. Continue to monitor. (3) Stroke: Plan: History TIA. Recent History of basilar artery thrombosis Recent hospitalization at [facility] 01/18/2021-02/21/2021 for episode bilateral leg weakness and syncope. CTA head showed a R mid V2-distal V4 artery occlusion with additional subocclusive thrombus extending to the tip of the basilar artery. Initial treatment IV heparin then transition warfarin with a Lovenox bridge after interval imaging showed stability of the thrombus Today CTA head and neck: No acute intracranial abnormality. Atherosclerotic plaque of the right greater than left carotid bulbs. There is approximately 50% stenosis of the proximal cervical segment of the right ICA with less than 50% stenosis on the left. Multifocal high-grade stenoses of the distal right vertebral and right posterior cerebral arteries Continue atorvastatin and hold Coumadin for now CT of the head remained unremarkable No evidence of a stroke. INR today at 1. Will need to discuss with [facility] neurologist about further anticoagulation. (4) Anemia: Plan: As above (5) Knee effusion, left: Plan: Left knee edema since admission at [facility]. 01/21/2021 left knee x-ray shows large nonspecific joint effusion. Orthopedics had seen patient at [facility] and recommended conservative management Patient with continued left knee pain and increased edema. Now with more significant anemia DDx: Hemarthrosis Obtain CT left knee Left knee pain is secondary to hematoma the left thigh muscles and is complicated by left knee osteoarthritis. (6) Acute kidney injury superimposed on CKD: Plan: Cr: 1.7. Baseline creatinine 1.4 per outpatient records. Creatinine was 1.4 on 01/29/2021 Monitor renal functions, avoid nephrotoxic agents when possible Gentle IVF-a little better Creatinine today at 1.22. (7) Sick sinus syndrome: Plan: S/p pacemaker Pacer interrogation (8) Parkinsonian features: Plan[facility] [employer] Continue carbidopa levodopa He was told by the nurse and neurologist that questionable seizure-like activity is due to parkinsonism (9) HTN (hypertension): Plan: Stable Continue metoprolol succinate DVT Prophylaxis -Holding Coumadin for now. Full Code as per discussion with pt Follows with Dr Newton for routine care. Admission and Anticipated Discharge Date Admission Date: January 30, 2021 Subjective Patient is awake, alert and oriented this morning . He is slow to respond. Denies any complaints at the moment. Denies any chest pain, shortness of breath, abdominal pain, diarrhea or dysuria. Review of Systems Review of Systems: All systems reviewed & are unremarkable except as noted in HPI & below Results & Data Results & Data ([facility]) Vital Signs (Past 12 Hours) Vital Signs Temp Pulse Pulse Resp BP Pulse Ox 02/02/21 08:00 76 02/02/21 07:39 36.8 C 76 18 131/73 97 02/02/21 03:47 36.8 C 81 20 150/70 H 95
[2021-02-02] MEDS: oxyCODONE HCL IR 5 MG TAB (IMMEDIATE RELEASE) PO PRN (16:19)
[2021-02-02] MEDS: ATORVASTATIN 40 MG TAB PO SCH (20:39)
[2021-02-03] MEDS: HYDROmorphone INJ 0.5 MG/0.5 ML SYR IV PRN ×2 (05:27→18:41)
[2021-02-03 07:52] LABS: Basophils # (auto) 0.04 K/uL (0-0.2); Basophils % (auto) 0.4 %; Eosinophils # (auto) 0.26 K/uL (0-0.5); Eosinophils % (auto) 2.3 %; Hematocrit (blood only) 26.2 % (42-52); Hemoglobin 8.6 g/dL (14.0-18.0); Immature Granulocytes # (auto) 0.07 K/uL (0.00-0.02); Immature Granulocytes % (auto) 0.6 %; Lymphocytes % (auto) 7.1 %; Mean Corpuscular Hemoglobin 29.8 pg (25-34); Mean Corpuscular Hgb Conc 32.8 g/dL (32-36); Mean Corpuscular Volume 90.7 fL (80-100); Monocytes # (auto) 1.13 K/uL (0.11-0.59); Neutrophils # (auto) 9.02 K/uL (1.4-6.5); Neutrophils % (auto) 79.6 %; Platelet Count 207 K/uL (130-400); RDW Coefficient of Variation 15.3 % (11.5-14.5); RDW Standard Deviation 49.6 fL (36.4-46.3); Red Blood Count 2.89 M/uL (4.7-6.1); White Blood Count 11.32 K/uL (4.8-10.8)
[2021-02-03 08:01] LABS: Prothrombin Time 10.2 Seconds (9.0-12.0)
[2021-02-03 08:09] LABS: BUN Creatinine Ratio 30.3 (10-20); Calcium 8.6 mg/dl (8.5-10.1); Creatinine Clr Calc Pharmacy 56.3 ml/min; Est GFR (African American) 61.7 ml/min; Est GFR (Non-African American) 53.2 ml/min; Potassium 4.1 mmol/L (3.5-5.1)
[2021-02-03] MEDS: CYANOCOBALAMIN 500 MCG TABLET (VITAMIN B-12) PO SCH (08:38)
[2021-02-03] MEDS: CARBIDOPA/LEVODOPA 25/100MG TAB PO SCH ×3 (08:38→20:28)
[2021-02-03] MEDS: METOPROLOL SUCC 25MG EXT REL TAB PO SCH (08:38)
[2021-02-03] MEDS: LIDOCAINE 5% 1 PATCH TD SCH (08:38)
--- NOTE | 2021-02-03 12:28 | Hospitalist Progress Note ---
Date of Service February 03, 2021 Assessment & Plan (1) Hematoma of left thigh: Plan: Has been complaining of left knee pain since around 01/23 Condition got worse at rehab in [facility] and unbearable. Increasing pain could be the cause of possible syncopal episode without any loss of consciousness CT scan did show extensive intramuscular hematoma within the left quadriceps musculature Appreciate Ortho input and recommendation. No surgical intervention needed. INR was reversed on admission. Coumadin has been on hold. Acute blood loss anemia Secondary to hemorrhage as above Hemoglobin dropped to 7.0 as of 02/01/2021 Did receive 2 units of PRBC. Hemoglobin down to 8.6. Continue to trend daily CBC. (2) Syncope: Plan: Patient is 85-year-old male with PMH HTN, TIA, CKD III, parkinsonian features, h/o sick sinus syndrome s/p pacemaker presented to ER from [facility] rehab for 2 syncopal episodes today when sitting up. Denies tonic-clonic features, loss cont rol of bowel/bladder CTA head and neck: Impression: No acute intracranial abnormality. Atherosclerotic plaque of the right greater than left carotid bulbs. There is approximately 50% stenosis of the proximal cervical segment of the right ICA with less than 50% stenosis on the left. Multifocal high-grade stenoses of the distal right vertebral and right posterior cerebral arteries. EKG did not show any arrhythmias or any other acute changes May be secondary to orthostatic hypotension, symptomatic anemia, dysautonomia, arrhythmia History echo 01/18/2021: EF: 55-59%, grade 1 diastolic dysfunction, aortic root mildly enlarged, mild aortic vegetation, mild mitral regurgitation Today patient is hemodynamically doing fine. No further episodes of syncope. Continue to work with PT/OT. Currently patient is awaiting placement. Questionable seizure-like activity Discussed with the and he has had symptoms suggestive of seizure for a long time Evaluated by neurologist in [place] and was told that it was due to Parkinson's disease Following an episode the patient remains semiresponsive for some time even at home when he becomes very difficult to be aroused Has had seizure-like activity last night and was given Keppra Appreciate neurology input and recommendationdoubt for any seizure and will discontinue Keppra EEG without evidence of seizures Keppra has been discontinued and neurology signed off. On 02/02 patient had again another episode of shakiness followed by confusion. Spoke with neurology. No new recommendations. Continue to monitor. (3) Stroke: Plan: History TIA. Recent History of basilar artery thrombosis Recent hospitalization at [facility] 01/18/2021-02/21/2021 for episode bilateral leg weakness and syncope. CTA head showed a R mid V2-distal V4 artery occlusion with additional subocclusive thrombus extending to the tip of the basilar artery. Initial treatment IV heparin then transition warfarin with a Lovenox bridge after interval imaging showed stability of the thrombus Today CTA head and neck: No acute intracranial abnormality. Atherosclerotic plaque of the right greater than left carotid bulbs. There is approximately 50% stenosis of the proximal cervical segment of the right ICA with less than 50% stenosis on the left. Multifocal high-grade stenoses of the distal right vertebral and right posterior cerebral arteries Continue atorvastatin and hold Coumadin for now CT of the head remained unremarkable No evidence of a stroke. INR today at 1. Will need to discuss with [facility] neurologist about further anticoagulation. (4) Anemia: Plan: As above (5) Knee effusion, left: Plan: Left knee edema since admission at [facility]. 01/21/2021 left knee x-ray shows large nonspecific joint effusion. Orthopedics had seen patient at [facility] and recommended conservative management Patient with continued left knee pain and increased edema. Now with more significant anemia DDx: Hemarthrosis Obtain CT left knee Left knee pain is secondary to hematoma the left thigh muscles and is complicated by left knee osteoarthritis. (6) Acute kidney injury superimposed on CKD: Plan: Cr: 1.7. Baseline creatinine 1.4 per outpatient records. Creatinine was 1.4 on 01/29/2021 Monitor renal functions, avoid nephrotoxic agents when possible Gentle IVF-a little better Creatinine today at 1.23. (7) Sick sinus syndrome: Plan: S/p pacemaker Pacer interrogation (8) Parkinsonian features: Plan: Following with neurology in [place] Continue carbidopa levodopa He was told by the nurse and neurologist that questionable seizure-like activity is due to parkinsonism (9) HTN (hypertension): Plan: Stable Continue metoprolol succinate DVT Prophylaxis -Holding Coumadin for now. Full Code as per discussion with pt Follows with Dr Newton for routine care. Admission and Anticipated Discharge Date Admission Date: January 30, 2021 Subjective Patient is awake, alert and oriented. Sitting comfortably in the recliner. Reports his main complaint is significant pain in the left thigh. Reports he is able to put weight on it. Hemoglobin slowly trended down. Hemodynamically doing okay. Other review of system is negative. Review of Systems Review of Systems: All systems reviewed & are unremarkable except as noted in HPI & below Physical Exam Physical Exam: General: A&Ox3 HENT: NCAT, MMM, EOMI Eyes: PERRLA Neck: Supple, normal range of motion CVS: normal rate and rhythm Resp: b/l good breath sounds Abdomen: Soft, ND/NT Extremities: Left thigh is significantly swollen as compared to the right, warm to touch, tenderness appreciated, sensation intact, soft Neuro: face symmetric, strength grossly equal, no focal deficit Skin: warm and dry, no rashes/lesions/errythema Results & Data Results & Data ([facility]) Vital Signs (Past 12 Hours) Vital Signs Temp Pulse Pulse Resp BP Pulse Ox 02/03/21 11:14 36.5 C 77 18 115/70 98 02/03/21 07:50 76 02/03/21 07:35 36.9 C 76 16 135/76 97 02/03/21 04:16 36.8 C 71 18 121/68 98 02/03/21 02:00 73
[2021-02-03] MEDS: ATORVASTATIN 40 MG TAB PO SCH (20:28)
[2021-02-03] MEDS: oxyCODONE HCL IR 5 MG TAB (IMMEDIATE RELEASE) PO PRN (21:56)
[2021-02-04] MEDS: CYANOCOBALAMIN 500 MCG TABLET (VITAMIN B-12) PO SCH (09:10)
[2021-02-04] MEDS: CARBIDOPA/LEVODOPA 25/100MG TAB PO SCH ×2 (09:10→13:52)
[2021-02-04] MEDS: LIDOCAINE 5% 1 PATCH TD SCH (09:10)
[2021-02-04] MEDS: METOPROLOL SUCC 25MG EXT REL TAB PO SCH (09:11)
[2021-02-04] MEDS ORDERED: ASPIRIN 81 MG ECTAB PO SCH (09:30)
--- NOTE | 2021-02-04 09:46 | Hospitalist Progress Note ---
Date of Service February 04, 2021 Assessment & Plan (1) Hematoma of left thigh: Plan: Has been complaining of left knee pain since around 01/23 Condition got worse at rehab in [facility] and unbearable. Increasing pain could be the cause of possible syncopal episode without any loss of consciousness CT scan did show extensive intramuscular hematoma within the left quadriceps musculature Appreciate Ortho input and recommendation. No surgical intervention needed. INR was reversed on admission. Coumadin has been on hold. 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 Given the current scenario of bleeding and requirement of 3 units of blood transfusion for now small dose of aspirin is recommended. Further anticoagulation could be administered after discussion with the patient and the family members especially the risk and benefit of anticoagulation. We will start aspirin 81 mg today and will discuss with the family members for possible restarting Coumadin in 1 to 2 weeks if agreeable. Acute blood loss anemia Secondary to hemorrhage as above Hemoglobin dropped to 7.0 as of 02/01/2021 Did receive 2 units of PRBC. Hemoglobin down to 8.6. Continue to trend daily CBC. Hemoglobin remains stable at 8.6 (2) Syncope: Plan: Patient is 85-year-old male with PMH HTN, TIA, CKD III, parkinsonian features, h/o sick sinus syndrome s/p pacemaker presented to ER from [facility] rehab for 2 syncopal episodes today when sitting up. Denies tonic-clonic features, loss control of bowel/bladder CTA head and neck: Impression: No acute intracranial abnormality. Atherosclerotic plaque of the right greater than left carotid bulbs. There is approximately 50% stenosis of the proximal cervical segment of the right ICA with less than 50% stenosis on the left. Multifocal high-grade stenoses of the distal right vertebral and right posterior cerebral arteries. EKG did not show any arrhythmias or any other acute changes May be secondary to orthostatic hypotension, symptomatic anemia, dysautonomia, arrhythmia History echo 01/18/2021: EF: 55-59%, grade 1 diastolic dysfunction, aortic root mildly enlarged, mild aortic vegetation, mild mitral regurgitation Today patient is hemodynamically doing fine. No further episodes of syncope. Continue to work with PT/OT. Currently patient is awaiting placement. Will be transferred to rehab this afternoon Questionable seizure-like activity Discussed with the and he has had symptoms suggestive of seizure for a long time Evaluated by neurologist in [place] and was told that it was due to Parkinson's disease Following an episode the patient remains semiresponsive for some time even at home when he becomes very difficult to be aroused Has had seizure-like activity last night and was given Keppra Appreciate neurology input and recommendationdoubt for any seizure and will discontinue Keppra EEG without evidence of seizures Keppra has been discontinued and neurology signed off. On 02/02 patient had again another episode of shakiness followed by confusion. Spoke with neurology. No new recommendations. Continue to monitor. No seizures and will not require any antiseizure medication (3) Stroke: Plan: History TIA. Recent History of basilar artery thrombosis Recent hospitalization at [facility] 01/18/2021-02/21/2021 for episode bilateral leg weakness and syncope. CTA head showed a R mid V2-distal V4 artery occlusion with additional subocclusive thrombus extending to the tip of the basilar artery. Initial treatment IV heparin then transition warfarin with a Lovenox bridge after interval imaging showed stability of the thrombus Today CTA head and neck: No acute intracranial abnormality. Atherosclerotic plaque of the right greater than left carotid bulbs. There is approximately 50% stenosis of the proximal cervical segment of the right ICA with less than 50% stenosis on the left. Multifocal high-grade stenoses of the distal right vertebral and right posterior cerebral arteries Continue atorvastatin and hold Coumadin for now CT of the head remained unremarkable No evidence of a stroke. INR today at 1. Discussed with [facility] neurosurgery team as above. (4) Anemia: Plan: As above (5) Knee effusion, left: Plan: Left knee edema since admission at [facility]. 01/21/2021 left knee x-ray shows large nonspecific joint effusion. Orthopedics had seen patient at [facility] and recommended conservative management Patient with continued left knee pain and increased edema. Now with more significant anemia DDx: Hemarthrosis Obtain CT left knee Left knee pain is secondary to hematoma the left thigh muscles and is complicate d by left knee osteoarthritis. (6) Acute kidney injury superimposed on CKD: Plan: Cr: 1.7. Baseline creatinine 1.4 per outpatient records. Creatinine was 1.4 on 01/29/2021 Monitor renal functions, avoid nephrotoxic agents when possible Gentle IVF-a little better Creatinine today at 1.23. Creatinine remains stable (7) Sick sinus syndrome: Plan: S/p pacemaker Pacer interrogation (8) Parkinsonian features: Plan: Following with [place]y [place] Continue carbidopa levodopa He was told by the nurse and neurologist that questionable seizure-like activity is due to parkinsonism (9) HTN (hypertension): Plan: Stable Continue metoprolol succinate DVT Prophylaxis -Holding Coumadin for now. Full Code as per discussion with pt Follows with Dr Newton for routine care. We will discharge to rehab this afternoon Admission and Anticipated Discharge Date Admission Date: January 30, 2021 Subjective 01/31/2021 The patient was seen and examined in medical telemetry unit He has been complaining of left lower extremity pain and left knee pain for the last few days at [facility] Condition got worse today with associated slurred speech and loss taken to the emergency room He was noted to have huge hematoma involving the left thigh with INR of 3.1 He was noted to be decreased in response this morning which has been noted before as per the and likely secondary to Parkinson's disease as she was told by the neurologist During examination later on he was speaking normally 01/02/2021 The patient was seen and examined in medical telemetry unit He has been feeling much better but looked a little bit drowsy today likely secondary to use of medication Still complains of pain in the left leg 01/05/2021 The patient was seen and examined in medical telemetry unit He remains stable and has been feeling a lot better His left leg swelling has improved and pain has improved too He will be transferred to rehab this afternoon Review of Systems Review of Systems: All systems reviewed and are unremarkable except as noted below Musculoskeletal: Improvement of the left lower extremity, swelling and the pain Physical Exam Physical Exam: Lying in bed comfortably Constitutional: well developed, well nourished, + ill appearing and + obese Eyes: PERRL, conjunctivae normal, anicteric sclerae ENMT: external ear and nose normal, oropharynx normal Neck: trachea midline, no thyromegaly Respiratory: no respiratory distress and no cough Auscultation: lungs clear to auscultation bilaterally Cardiovascular: Rate/Rhythm: regular rate and regular rhythm; not tachycardic Heart Sounds: normal S1 and normal S2; no murmur Extremities: no edema Gastrointestinal (Abdomen): Inspection/Auscultation: normal bowel sounds; abdomen not distended Musculoskeletal: Left lower extremities swollen. No definite tenderness. Movement is minimally painful Neurologic: Alert, awake and oriented x3. No focal sensory and motor deficit appreciated Results & Data Results & Data ([facility]) Vital Signs (Past 12 Hours) Vital Signs Temp Pulse Pulse Resp BP Pulse Ox 02/04/21 08:04 70 02/04/21 07:54 36.9 C 72 18 142/72 H 94 02/04/21 04:05 37.1 C 72 18 132/76 95 02/03/21 23:40 36.9 C 101 H 18 169/75 H 96 02/03/21 23:26 81 Medications Administered Current Inpatient Medications Acetaminophen (Acetaminophen 325 Mg Tab) 650 mg PO Q4H PRN PRN Reason: Pain or Fever Stop: 03/01/21 22:06 Last Admin: 02/03/21 23:06 Dose: 650 mg Documented by: Aspirin (Aspirin 81 Mg Ectab) 81 mg PO QAM [facility] Stop: 03/06/21 09:29 Atorvastatin Calcium (Atorvastatin 40 Mg Tab) 80 mg PO PM [facility] Stop: 03/01/21 22:06 Last Admin: 02/03/21 20:28 Dose: 80 mg Documented by: Bisacodyl (Bisacodyl 10 Mg Supp) 10 mg [place] DAILY PRN PRN Reason: Constipation Stop: 03/01/21 22:06 Carbidopa/Levodopa (Carbidopa/Levodopa 25/100mg Tab) 1.5 tab PO TID [facility] Stop: 03/01/21 22:06 Last Admin: 02/04/21 09:10 Dose: 1.5 tab Documented by: Cyanocobalamin (Cyanocobalamin 500 Mcg Tablet (Vitamin B-12)) 1,000 mcg PO DAILY [facility] Stop: 03/02/21 08:59 Last Admin: 02/04/21 09:10 Dose: 1,000 mcg Documented by: Hydromorphone HCl (Hydromorphone Inj 0.5 Mg/0.5 Ml Syr) 0.25 mg IV Q6H PRN PRN Reason: Pain Stop: 02/15/21 05:28 Last Admin: 02/03/21 18:41 Dose: 0.25 mg Documented by: Lorazepam (Ativan) 1 mg in 2 mls @ 0.5 mls/min IV Q10M PRN PRN Reason: seizures Stop: 03/01/21 22:40 Last Admin: 02/01/21 02:06 Dose: 0.5 mls/min Documented by: Levetiracetam (Levetiracetam 500 Mg Tab) 500 mg PO BID [facility] Stop: 03/02/21 08:59 Last Admin: 01/31/21 08:14 Dose: 500 mg Documented by: Lidocaine (Lidocaine 5% 1 Patch) 1 patch TD QAM [facility] Stop: 03/02/21 08:59 Last Admin: 02/04/21 09:10 Dose: 1 patch Documented by: Metoprolol Succinate (Metoprolol Succ 25mg Ext Rel Tab) 25 mg PO DAILY [facility] Stop: 03/02/21 08:59 Last Admin: 02/04/21 09:11 Dose: 25 mg Documented by: Miscellaneous (Remove Lidoderm Patch) 1 ea N/A DAILY@2100 [facility] Stop: 03/01/21 22:06 Last Admin: 02/03/21 20:29 Dose: 1 ea Documented by: Ondansetron HCl (Ondansetron Inj 2 Mg/Ml 2 Ml Vial) 4 mg IV Q6H PRN PRN Reason: Nausea Stop: 03/01/21 22:06 Oxycodone HCl (Oxycodone Hcl Ir 5 Mg Tab (Immediate Release)) 5 mg PO Q4H PRN PRN Reason: Pain Stop: 02/15/21 05:28 Last Admin: 02/03/21 21:56 Dose: 5 mg Documented by: Polyethylene Glycol (Polyethylene (Miralax) 17 Gm Pack) 17 gm PO DAILY PRN PRN Reason: Constipation Stop: 03/01/21 22:06 Sennosides (Senna 8.6 Mg Tab) 8.6 mg PO QDL PRN PRN Reason: Constipation Stop: 03/01/21 22:06
--- NOTE | 2021-02-05 07:18 | Discharge Summary ---
Date of Service February 05, 2021 Admission HPI Per Admitting Provider Patient is 85-year-old male with PMH HTN, TIA, CKD III, parkinsonian features, h/o sick sinus syndrome s/p pacemaker presented to ER from [facility] for syncopal episode. Patient with history hospitalization at [facility] 01/18/2021- 02/21/2021. He had episode of bilateral leg weakness and syncopal episode en route to ER. 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 Patient transferred to [facility]. No focal deficits reported on exam. He was initially started on a heparin drip for treatment of the thrombus, and after interval imaging showed stability of the thrombus, he was transitioned to warfarin with a Lovenox bridge and his prior Plavix was discontinued. He was discharged to [facility]. During that hospitalization patient also was found to have left knee effusion and there was concern for hemarthrosis. Orthopedic surgery commended conservative management with rest ice compression and elevation. Today at [facility] it is reported that patient set up this morning and had a staring off episode and had slow and sluggish speech. Is reported symptoms lasted several minutes and resolved. Patient set up to try to participate in PT today and had episode of staring off and then eyes rolled back and head and patient started to fall backwards into his bed. Staff there denies any tonic-clonic movements, diaphoresis. This occurred twice today. Patient does not recall any of these events. Patient's and daughter report patient has history of orthostatic hypotension past. Patient reports left knee pain which is extended up left thigh with edema. Patient's family reports edema looks worse than when he left [facility]. Patient denies any known fall. He reports he has very limited range of motion of left leg and knee secondary to pain. Denies paresthesias. Denies fever/chills, diaphoresis, N/V/D, CRISOSTOMO, dizziness, vision changes, neck pain, CP, SOB, orthopnea, palpitations, cough, sore throat, choking, otalgia, rhinorrhea, abdominal pain, right lower or bilateral upper extremity weakness, other extremity edema, rashes, urinary symptoms. In ER patient afebrile, BP: 134/74, P: 76, R: 14, 98% on room air. H/H: 8.8/27, INR: 3.1. Negative troponin. CTA head and neck: No acute intracranial abnormality. Atherosclerotic plaque of the right greater than left carotid bulbs. There is approximately 50% stenosis of the proximal cervical segment of the right ICA with less than 50% stenosis on the left. Multifocal high-grade stenoses of the distal right vertebral and right posterior cerebral arteries. Admission Exam Per Admitting Provider Physical Exam: General: no distress, WDWN Head: normocephalic, atraumatic Eyes: hard of hearing, PERRL, EOM's intact, conjunctiva non-injected, anicteric ENT: normal inspection external ears, nose, mucous membranes moist Neck: supple, trachea midline Lungs: clear, no respiratory distress, no wheezing/rhonchi/rales CV: RRR, no murmur, no pitting edema Abd: normal BS, soft, non-tender Ext: LLE: +edema extending thigh, knee, lower leg without skin discoloration pt unable to actively ROM leg and knee, able to dorsiflex and plantar flex foot. Unable to test passive ROM leg and knee secondary to discomfort. Distal pulses palpable, sensation to light touch intact. Remaining extremities with no cyanosis, no erythema, ROM intact Neuro: A&O x 3, Visual koch intact. 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, Parkinson's disease, hypertension, seizures have been ruled out Discharge Exam Constitutional well developed, well nourished, + ill appearing and + obese Eyes PERRL, conjunctivae normal, anicteric sclerae ENMT external ear and nose normal, oropharynx normal Neck trachea midline, no thyromegaly Respiratory no respiratory distress and no cough Auscultation: lungs clear to auscultation bilaterally Cardiovascular Rate/Rhythm: regular rate and regular rhythm; not tachycardic Heart Sounds: normal S1 and normal S2; no murmur Extremities: no edema Gastrointestinal (Abdomen) Inspection/Auscultation: normal bowel sounds; abdomen not distended Discharge Data Allergies Allergy/AdvReac Type Severity Reaction Status Date / Time cortisone Allergy Unknown Unverified 01/30/21 16:55 Consultations 01/30/21 17:54 ED Decision to Admit Stat 01/30/21 19:23 Consult Orthopedic Surgery Routine 01/30/21 22:00 Consult Neurology Routine Ordered Studies 01/30/21 14:57 CT angio head w con Stat CT angio neck with con Stat CT head/brain wo con Stat 01/30/21 17:26 CT abd pelvis wo con Stat 01/30/21 18:49 CT knee LT wo con Stat 01/31/21 00:18 CT femur LT wo con Urgent CT head/brain wo con Urgent Hospital Course (1) Hematoma of left thigh: Has been complaining of left knee pain since around 01/23 Condition got worse at rehab in [facility] and unbearable. Increasing pain could be the cause of possible syncopal episode without any loss of consciousness CT scan did show extensive intramuscular hematoma within the left quadriceps musculature Appreciate Ortho input and recommendation. No surgical intervention needed. INR was reversed on admission. Coumadin has been on hold. Discussed with the neurosurgery in [place]-given the significant improvement of his right vertebral artery thrombosis with stroke anticoagulation would be preferable to continue for about 3 months. Given the current scenario of bleeding and requirement of 3 units of blood transfusion for now small dose of aspirin is recommended. Further anticoagulation could be administered after discussion with the patient and the family members especially the risk and benefit of anticoagulation. We will start aspirin 81 mg today and will discuss with the family members for possible restarting Coumadin in 1 to 2 weeks if agreeable. Acute blood loss anemia Secondary to hemorrhage as above Hemoglobin dropped to 7.0 as of 02/01/2021 Did receive 2 units of PRBC. Hemoglobin down to 8.6. Continue to trend daily CBC. Hemoglobin remains stable at 8.6 (2) Syncope: Patient is 85-year-old male with PMH HTN, TIA, CKD III, parkinsonian features, h/o sick sinus syndrome s/p pacemaker presented to ER from [facility] for 2 syncopal episodes today when sitting up. Denies tonic-clonic features, loss control of bowel/bladder CTA head and neck: Impression: No acute intracranial abnormality. Atherosclerotic plaque of the right greater than left carotid bulbs. There is approximately 50% stenosis of the proximal cervical segment of the right ICA with less than 50% stenosis on the left. Multifocal high-grade stenoses of the distal right vertebral and right posterior cerebral arteries. EKG did not show any arrhythmias or any other acute changes May be secondary to orthostatic hypotension, symptomatic anemia, dysautonomia, arrhythmia History echo 01/18/2021: EF: 55-59%, grade 1 diastolic dysfunction, aortic root mildly enlarged, mild aortic vegetation, mild mitral regurgitation Today patient is hemodynamically doing fine. No further episodes of syncope. Continue to work with PT/OT. Currently patient is awaiting placement. Will be transferred to rehab this afternoon Questionable seizure-like activity Discussed with the and he has had symptoms suggestive of seizure for a long time Evaluated by neurologist in [place] and was told that it was due to Parkinson's disease Following an episode the patient remains semiresponsive for some time even at home when he becomes very difficult to be aroused Has had seizure-like activity last night and was given Keppra Appreciate neurology input and recommendationdoubt for any seizure and will discontinue Keppra EEG without evidence of seizures Keppra has been discontinued and neurology signed off. On 02/02 patient had again another episode of shakiness followed by confusion. Spoke with neurology. No new recommendations. Continue to monitor. No seizures and will not require any antiseizure medication (3) Stroke: History TIA. Recent History of basilar artery thrombosis Recent hospitalization at [facility] 01/18/2021-02/21/2021 for episode bilateral leg weakness and syncope. CTA head showed a R mid V2-distal V4 artery occlusion with additional subocclusive thrombus extending to the tip of the basilar artery. Initial treatment IV heparin then transition warfarin with a Lovenox bridge after interval imaging showed stability of the thrombus Today CTA head and neck: No acute intracranial abnormality. Atherosclerotic plaque of the right greater than left carotid bulbs. There is approximately 50% stenosis of the proximal cervical segment of the right ICA with less than 50% stenosis on the left. Multifocal high-grade stenoses of the distal right vertebral and right posterior cerebral arteries Continue atorvastatin and hold Coumadin for now CT of the head remained unremarkable No evidence of a stroke. INR today at 1. Discussed with [facility] neurosurgery team as above. (4) Anemia: As above (5) Knee effusion, left: Left knee edema since admission at [facility]. 01/21/2021 left knee x-ray shows large nonspecific joint effusion. Orthopedics had seen patient at [facility] and r ecommended conservative management Patient with continued left knee pain and increased edema. Now with more significant anemia DDx: Hemarthrosis Obtain CT left knee Left knee pain is secondary to hematoma the left thigh muscles and is complicated by left knee osteoarthritis. (6) Acute kidney injury superimposed on CKD: Cr: 1.7. Baseline creatinine 1.4 per outpatient records. Creatinine was 1.4 on 01/29/2021 Monitor renal functions, avoid nephrotoxic agents when possible Gentle IVF-a little better Creatinine today at 1.23. Creatinine remains stable (7) Sick sinus syndrome: S/p pacemaker Pacer interrogation (8) Parkinsonian features[facility] Continue carbidopa levodopa He was told by the nurse and neurologist that questionable seizure-like activity is due to parkinsonism (9) HTN (hypertension): Stable Continue metoprolol succinate DVT Prophylaxis -Holding Coumadin for now. Full Code as per discussion with pt Follows with Dr Newton for routine care. 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 Aspirin 81 mg has been started Continue PT and OT as recommended No NSAID use for pain Please check CBC in 1 week to monitor hemoglobin. Addtl Food Quality Technician Provider Instructions: Discussed with the neurosurgery (Dr Min Mcduffie) in [place]-given the significant improvement of his right vertebral artery thrombosis with anticoagulation, it would be preferable to continue anticoagulation for about 3 months. Given the current scenario of bleeding and requirement of 3 units of blood transfusion, for now small dose of aspirin is recommended. Further anticoagulation could be administered after discussion with the patient and the family members especially the risk and benefit of anticoagulation. We will start aspirin 81 mg today and will discuss with the family members for possible restarting Coumadin in 1 to 2 weeks if the family members are agreeable. This was discussed in detail with the daughter and the on 02/04/2021. Pending Studies at Discharge: No Stand-Alone Forms: My [facility] Skilled Items Patient informed of condition?: Yes DNR: No Discharge Level of Care: Skilled Communicable Disease: No Discharge Prognosis: Stable Lines: None Urinary Catheter: No Medications and DC Order Prescriptions: New aspirin 81 mg Tablet,Delayed Release (Dr/Ec) 81 mg PO QAM 30 Days Qty: 30 RF: 0 lidocaine 5 % Adhesive Patch,Medicated 1 patch transdermal QAM 30 Days Qty: 30 RF: 0 oxycodone 5 mg Tablet 5 mg PO Q4H PRN (Reason: pain) 5 Days Qty: 20 RF: 0 Continued atorvastatin 40 mg Tablet 80 mg PO PM RF: 0 carbidopa-levodopa 25-100 mg Tablet 1.5 tab PO TID RF: 0 cyanocobalamin (vitamin B-12) 1,000 mcg Tablet 1,000 mcg PO DAILY RF: 0 docusate sodium 100 mg Capsule 100 mg PO BID RF: 0 glucosamine sulfate [Glucosamine] 500 mg Tablet 500 mg PO BID RF: 0 metoprolol succinate 25 mg Tablet Extended Release 24 Hr 25 mg PO DAILY RF: 0 acetaminophen 325 mg Tablet 650 mg PO Q4H PRN (Reason: Pain) RF: 0 bisacodyl 10 mg Suppository 10 mg WI DAILY PRN (Reason: Constipation) RF: 0 sennosides [Senna Laxative] 8.6 mg Tablet 8.6 mg PO .DAILY@LUNCH PRN (Reason: Constipation) RF: 0 polyethylene glycol 3350 17 gram/dose Powder 17 g PO DAILY PRN (Reason: Constipation) RF: 0 Discontinued enoxaparin 100 mg/mL Syringe 100 mg SUBCUT Q12H RF: 0 warfarin 5 mg Tablet 5 mg PO UD RF: 0 Discharge Orders: Discharge Order (Routine); Ordered 02/04/21 Ordered By: Matthew Dailey Admission Data Admit Date/Time: 01/30/21 19:18 Attending Provider: Matthew Dailey Admit Provider: Matthew Dailey Primary Care Provider: Ted Newton Other Providers: Royal Stanford ; Matthew Dailey ; Juan Villanueva ; [facility] ; Abiodun Oshea. Other Interventions: Discharge Summary Assessment (RN) Last Done: 02/04/21 15:04
== END 2021-02-04 17:34 | DRG 813 ==
LOC: ED 14:03 → SUATTDRO 19:18 → 2N 19:18
DX: G20 Parkinson's disease; D68.318 Other hemorrhagic disorder due to intrinsic circulating anticoagulants, antibodies, or inhibitors; M25.462 Effusion, left knee; Z95.0 Presence of cardiac pacemaker; I49.5 Sick sinus syndrome; Z86.73 Personal history of transient ischemic attack (TIA), and cerebral infarction without residual deficits; N18.30 Chronic kidney disease, stage 3 unspecified; Z79.01 Long term (current) use of anticoagulants; I12.9 Hypertensive chronic kidney disease with stage 1 through stage 4 chronic kidney disease, or unspecified chronic kidney disease; N17.9 Acute kidney failure, unspecified; Z87.891 Personal history of nicotine dependence; D62 Acute posthemorrhagic anemia; Z82.49 Family history of ischemic heart disease and other diseases of the circulatory system; W19.XXXA Unspecified fall, initial encounter; S70.12XA Contusion of left thigh, initial encounter